=== PATIENT | male | born 1995 | race Caucasian/White ===

== ENCOUNTER 2022-01-30 18:05 | Inpatient (IN) | payer OTHER ==
[2022-01-30] MEDS ORDERED: NICOTINE 21MG/24HR PATCH TRANSDERM STA (22:15)
[2022-01-30] MEDS ORDERED: OLANZapine 10 MG VIAL IM STA (23:03)
[2022-01-30] MEDS ORDERED: LORazepam 1 MG TAB PO STA (23:27)
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
[2022-01-31] MEDS ORDERED: MAGNESIUM HYDROXIDE 2,400 MG/10 ML CUP PO PRN (01:42)
[2022-01-31] MEDS ORDERED: ACETAMINOPHEN TAB 325 MG TAB PO PRN (01:42)
[2022-01-31] MEDS ORDERED: MAG HYDROX/AL HYDROX/SIMETH 30 ML CUP PO PRN (01:42)
[2022-01-31] MEDS ORDERED: HALOPERIDOL LACTATE 5 MG/ML 1 ML VIAL IM PRN (01:42)
[2022-01-31] MEDS ORDERED: LORazepam 2 MG/ML INJ IM PRN (01:45)
[2022-01-31] MEDS: LORazepam 1 MG TAB PO PRN ×2 (03:06→21:55)
[2022-01-31] MEDS: NICOTINE 14MG/24HR PATCH TRANSDERM SCH (08:28)
[2022-01-31] MEDS ORDERED: PARoxetine 20 MG TAB PO SCH (09:00)
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
[2022-01-31] MEDS: DULoxetine HCL 30 MG CAPSULE.DR PO SCH (20:34)
[2022-01-31] MEDS: QUEtiapine 50 MG TAB PO SCH (20:34)
--- NOTE | 2022-01-31 22:05 | P.MDCNMH ---
History of Present Illness H&P Date: 01/31/22 Chief Complaint: medical eval 26 year old male with bipolar disorder patient petitioned by family for delusional behavior and making threats. he denies that. however, he has been going through hard time with his GF and lead to him feeling depressed. he denies any medical concerns , denies any fever, chills, cough, SOB, chest pain, abd pain , Nausea vomiting. he admits to smoking, marijuana and alcohol Review of Systems Pertinent positives as noted in HPI. All other systems were reviewed and are negative Past Medical History Past Medical History: Asthma History of Any Multi-Drug Resistant Organisms: None Reported Past Surgical History: Tonsillectomy Past Psychological History: ADD/ADHD, Anxiety, Depression Smoking Status: Current some day smoker, Vaper Past Alcohol Use History: Occasional Past Drug Use History: Marijuana - Past Family History family Family Medical History: No Reported History Medications and Allergies Home Medications Medication Instructions Recorded Confirmed Type Methylphenidate HCl 36 mg PO DAILY 01/30/22 01/31/22 History [Methylphenidate HCl ER] PARoxetine HCL [Paxil] 40 mg PO DAILY 01/30/22 01/31/22 History Allergies Allergy/AdvReac Type Severity Reaction Status Date / Time No Known Allergies Allergy Verified 01/31/22 01:45 Physical Exam Vitals: Vital Signs Temp Pulse Pulse Resp BP BP Pulse Ox 01/31/22 02:40 97.6 F 77 16 159/101 99 01/30/22 22:23 77 18 127/88 97 Intake and Output 01/31/22 01/31/22 01/31/22 06:59 14:59 22:59 Other: Weight 114.957 kg Constitutional: No acute distress, conversant, pleasant Eyes: Anicteric sclerae, moist conjunctiva, Pupils equal round reactive to light ENMT: NC/AT Oropharynx clear, no erythema, or exudates Neck: Supple, FROM, no masses, or JVD No carotid bruits No thyromegaly Lungs: Clear to auscultation Clear to percussion Normal respiratory effort, no accessory muscle use Cardiovascular: Heart regular in rate and rhythm, No murmurs, gallops, or rubs No peripheral edema Abdominal: Soft Nontender, no guarding, rebound or rigidity Abdomen moving with respiration Normoactive bowel sounds No hepatomegaly, No splenomegaly No palpable mass No abdominal wall hernia noted Skin: Normal temperature, tone, texture, turgor No induration No subcutaneous nodules No rash, lesions No ulcers Extremities: No digital cyanosis No clubbing Pedal pulses intact and symmetrical Radial pulses intact and symmetrical No calf tenderness Psychiatric: Alert and oriented to person, place and time Appropriate affect Neuro Muscles Strength 5/5 in all 4 extremities Sensation to light touch grossly present throughout Cranial nerves II-XII grossly intact No focal sensory deficits Lymphatics: no palpable cervical or supraclavicular , or inguinal lymph nodes Cranial Nerve Examination - Cranial Nerves Cranial Nerve II- Optic: Intact Cranial Nerve III- Oculomotor: Intact Cranial Nerve IV- Trochlear: Intact Cranial Nerve V- Trigeminal: Intact Cranial Nerve - Abducens: Intact Cranial Nerve VII- Facial: Intact Cranial Nerve VIII- Auditory: Intact Cranial Nerve IX- Glossopharyngeal: Intact Cranial Nerve X- Vagus: Intact Cranial Nerve XI- Accessory: Intact Cranial Nerve XII- Hypoglossal: Intact Assessment and Plan Assessment: depression , delusional ideation management per psych polysubstance abuse counseled to quit drug of abuse nicotine replacement therapy follow up labs Thank you for allowing us to participate in the care of this patient. We will follow peripherally. Do not hesitate to contact us with questions. Someone can be reached from the [facility] hospitalist group at all hours of the day at [phone].
--- NOTE | 2022-02-01 09:13 | P.PN ---
Progress Note - Text Progress Note Date: 02/01/22 Interval History: Patient was seen lying in his bed this morning and was directable and agreeable to speak with marketing writer in the office. Patient appeared to have an improvement in his affect today. He appeared to be less paranoid and less argumentative with marketing writer. He continues to be fairly guarded however about his home situation and when asked further about any states that "my grandparents are getting older and they're having their own problems" and then begin changing subject. He states that his mood is doing "better" and is denying any anxiety today. He states that he was able to sleep well last night with the medications and is not reporting any side effects today. He claims that his appetite is fair. At this time patient denies any suicidal or homical ideations, intent or plan. Patient denies any auditory, visual hallucinations. Patient denies any side effects from the medications and has been compliant with meds. Mental Status Exam: General Appearance: Patient appears to be tall, stated age is alert, less bizarre and paranoid today, improving. Patient appears to have improving hygiene and grooming. Behavior: Patient is seated without any agitated behavior. Vague, evasive at times. More cooperative today. Speech: Patient's speech is fluent and nonpressured. Mood/Affect: Patient reports their mood is improving mildly, affect is congruent and constricted. Suicidality/Homicidality: Patient denies having any homicidal ideation intent or plan. Denies any suicidal ideations intent or plan Perceptions: Patient denies any visual hallucinations and denies any auditory hallucinations Though content/process: vague and evasive. Not endorsing any specific delusi ons. Paranoia improving. Memory and concentration: AOX3, grossly intact for the purposes of this session Judgment and insight: Improving mildly IMPRESSIONS: Major depressive disorder, with psychotic features Cannabis use disorder Nicotine dependence Plan: -Patient continues to meet criteria for inpatient psychiatric admission for symptom stabilization and safety. Patient has not signed adult voluntary form and was placed in patient's chart. -Medications: Continue with Cymbalta 30 mg daily at bedtime for mood/anxiety, Seroquel 50 mg daily at bedtime for mood/psychosis. -When necessary Ativan and Haldol for agitation/aggression. -NRT - nicotine patch -SW on board for discharge planning. Encouraged the patient to participate in milieu. Currently awaiting deferral with sports attorney and court date. it appears that patient will likely sign deferral with his sports attorney, patient could likely be discharged shortly after that if he continues to improve
[2022-02-01] MEDS: NICOTINE 14MG/24HR PATCH TRANSDERM SCH (09:14)
[2022-02-01 10:59] LABS: Basophils % (A) 1 %; Eosinophils # (A) 0.1 k/uL (0-0.7); Eosinophils % (A) 1 %; HGB 16.1 gm/dL (13.0-17.5); Lymphocytes # (A) 1.6 k/uL (1.0-4.8); Lymphocytes % (A) 27 %; MCH 29.3 pg (25.0-35.0); MCHC 32.8 g/dL (31.0-37.0); MCV 89.2 fL (80.0-100.0); Mean Platelet Volume 7.7; Monocytes # (A) 0.3 k/uL (0-1.0); Monocytes % (A) 5 %; Neutrophils # (A) 3.8 k/uL (1.3-7.7); Neutrophils % (A) 65 %; Platelet Count 262 k/uL (150-450); RDW 13.3 % (11.5-15.5); WBC 5.9 k/uL (3.8-10.6)
[2022-02-01 11:22] LABS: ALT 29 U/L (4-49); AST 27 U/L (17-59); African American GFR (CKD) >90 (>60 ml/min/1.73 sqM); Albumin 4.7 g/dL (3.5-5.0); Alkaline Phosphatase 81 U/L (38-126); Anion Gap 6 mmol/L; Blood Urea Nitrogen 14 mg/dL (9-20); Calcium 9.6 mg/dL (8.4-10.2); Carbon Dioxide 31 mmol/L (22-30); Chloride 105 mmol/L (98-107); Glucose 85 mg/dL (74-99); Non-African American GFR(CKD) >90 (>60 ml/min/1.73 sqM); Potassium 4.8 mmol/L (3.5-5.1); Sodium 142 mmol/L (137-145); Total Bilirubin 0.7 mg/dL (0.2-1.3); Total Protein 7.2 g/dL (6.3-8.2)
[2022-02-01] MEDS: QUEtiapine 50 MG TAB PO SCH (20:30)
[2022-02-01] MEDS: DULoxetine HCL 30 MG CAPSULE.DR PO SCH (20:30)
[2022-02-01] MEDS: NICOTINE GUM (POLACRILEX) 2 MG GUM BUCCAL PRN (20:31)
[2022-02-01] MEDS: LORazepam 1 MG TAB PO PRN (21:01)
[2022-02-01] MEDS: haloperidoL 5 MG TAB PO PRN (21:01)
[2022-02-02] MEDS: NICOTINE 14MG/24HR PATCH TRANSDERM SCH (08:47)
[2022-02-02] MEDS: LORazepam 1 MG TAB PO PRN ×2 (08:48→14:54)
[2022-02-02] MEDS: haloperidoL 5 MG TAB PO PRN ×2 (08:48→14:54)
--- NOTE | 2022-02-02 15:03 | P.PN ---
Progress Note - Text Progress Note Date: 02/02/22 Clinical Problems: Major depressive disorder with psychotic features, rule out bipolar disorder most recent episode depressed with psychotic features, rule out schizoaffective disorder, rule out schizophreniform disorder cannabis use disorder, history of ADHD, tobacco use disorder Interim history: I reviewed the medical record, interviewed the patient and discussed the treatment and treatment plan with the treatment team. He was admitted to the psychiatric unit involuntarily with a history of agitation, irritability, aggressiveness and paranoia. He minimizes the circumstances that led to this hospitalization and denied that he had threatened his mother. He attributes the hospitalization to a series of misunderstandings between him and his family. He was vague about the circumstances but alluded to his issues regarding money and inheritance. He denied that he was homeless or that he was sleeping in a truck. He became acutely distressed yesterday last night threatening to "bust down the door." He received 5 mg of Haldol and 1 mg Ativan by mouth. He is not attending therapeutic groups. He slept 6 hours last night. Mental status exam: He presented as a tall casually groomed, young male who was pleasant on approach. He made eye contact and appeared to attend to interview. He had no distinguishing features or prominent physical abnormalities. He had a blunted facial expression. He showed no ability of psychomotor activity. His speech was spontaneous with normal rate and volume. His affect was guarded, suspicious and anxious. He denied suicidal ideation and wishes. He denied homicidal ideation. Denied feeling hopeless, helpless or worthless. He ruminated over the circumstances that led to this hospitalization and expressed vague paranoid ideation. His thinking was concrete. Associations were coherent and logical. He denied hallucinations and did not appear to be responding to internal stimuli. Assessment: We are waiting the deferral hearing. He continues have periods of increased paranoia and agitation Plan: Attend inpatient treatment. Safety precautions. Continue Cymbalta 30 mg daily. Increase Seroquel 200 mg at bedtime and titrated according to clinical response and tolerance. Habitrol and/or Nicorette gum for smoking cessation. Encourage participation in therapeutic groups and activities. Evaluate clinical status response to treatment daily basis.
[2022-02-02] MEDS: DULoxetine HCL 30 MG CAPSULE.DR PO SCH (20:48)
[2022-02-02] MEDS: NICOTINE GUM (POLACRILEX) 2 MG GUM BUCCAL PRN (20:49)
[2022-02-02] MEDS ORDERED: QUEtiapine 100 MG TAB PO SCH (21:00)
[2022-02-03] MEDS: NICOTINE 14MG/24HR PATCH TRANSDERM SCH (08:18)
--- NOTE | 2022-02-03 13:27 | P.PN ---
Progress Note - Text Progress Note Date: 02/03/22 Clinical Problems: Major depressive disorder with psychotic features, rule out bipolar disorder most recent episode depressed with psychotic features, rule out schizoaffective disorder, rule out schizophreniform disorder cannabis use disorder, history of ADHD, tobacco use disorder Interim history: I reviewed the medical record, interviewed the patient and discussed the treatment and treatment plan with the treatment team. He was angry, irritable and minimally cooperative. He complained about the continued hospitalization and demanded to be discharged. He has no insight or understanding as to the reason for this hospitalization. He met with his court appointed litigation attorney and deferred the probate hearing today. He received 1 mg of Ativan 5 mg of Haldol yesterday afternoon for agitation acute psychosis. I reviewed the letter written by his mother about his behavior. The letter de scribes \ marked change in his functioning with paranoia and paranoid and grandiose delusional beliefs. She slept 7 hours last night. He is not attending therapeutic groups and activities. He spends his time alone seldom interacting with staff or peers. He often appears to be internally preoccupied. Mental status exam: He presented as a tall casually groomed male who was minimally cooperative. He was angry and irritable. He had slight psychomotor slowing. His speech was not spontaneous and had decreased rate and rhythm. His affect was dysphoric, angry and short. He denied suicidal ideation and homicidal ideation. He did not express feelings of hopelessness, helplessness and worthlessness. He ruminated about this hospitalization and the misunderstanding that led to this hospitalization. He is paranoid but did not express clear paranoid ideation or delusional beliefs. His thinking was concrete but his associations were coherent, logical goal-directed. He denied hallucinations but at times appears to be responding to internal stimuli. Assessment: He has been compliant with medications but remains isolative, aloof, irritable and paranoid. I suspect that he has a major mental illness and a psychotic spectrum. Plan: Continue inpatient treatment. Safety precautions. Increase Seroquel to 200 mg at bedtime and titrated according to clinical response and tolerance. Continue current dose of duloxetine. Haldol and/or Ativan for agitation, anxiety or acute psychosis. Continue discussion of need for continued mental health treatment including psychotropic medications. Encourage participation in therapeutic groups and activities. Evaluate clinical status response to treatment daily basis.
[2022-02-03] MEDS: NICOTINE GUM (POLACRILEX) 2 MG GUM BUCCAL PRN ×2 (13:42→20:49)
[2022-02-03] MEDS: LORazepam 1 MG TAB PO PRN ×2 (13:42→20:06)
[2022-02-03] MEDS: DULoxetine HCL 30 MG CAPSULE.DR PO SCH (20:06)
[2022-02-03] MEDS: QUEtiapine 100 MG TAB PO SCH (20:07)
[2022-02-03] MEDS: haloperidoL 5 MG TAB PO PRN (20:08)
[2022-02-04] MEDS: NICOTINE 14MG/24HR PATCH TRANSDERM SCH (08:39)
[2022-02-04] MEDS: LORazepam 1 MG TAB PO PRN ×2 (10:17→16:35)
[2022-02-04] MEDS: haloperidoL 5 MG TAB PO PRN ×2 (14:04→15:37)
[2022-02-04] MEDS: NICOTINE GUM (POLACRILEX) 2 MG GUM BUCCAL PRN ×3 (14:16→19:18)
--- NOTE | 2022-02-04 14:35 | P.PN ---
Progress Note - Text Progress Note Date: 02/04/22 Clinical Problems: Major depressive disorder with psychotic features, rule out bipolar disorder most recent episode depressed with psychotic features, rule out schizoaffective disorder, rule out schizophreniform disorder cannabis use disorder, history of ADHD, tobacco use disorder Interim history: I reviewed the medical record and interviewed the patient. He described improvement in his mood decreases anxiety and irritability. He denied side effects to the increased dose dose of Seroquel. However, he was reluctant to increase the Seroquel further. He was more receptive to remaining in the hospital and has begun to attend therapeutic activities. He is less isolative. He denied side effects to current dose of Cymbalta or Seroquel. Mental status exam: He presented as a tall casually groomed young male who was pleasant on approach. He made eye contact and attended to the interview. He had a blunted but bright facial expression. He had no abnormality of psychomotor activity. Her speech was spontaneous with normal rate, volume and rhythm. His affect was stable and appropriate. He was not irritable or angry or overly anxious. He denied suicidal ideation or wishes. He denied feeling hopeless, helpless and worthless. He did not express ideas reference, paranoid ideation or delusions. His thinking was abstract and associations were coherent, logical and goal directed. He denied hallucinations did not appear to responding to internal stimuli. Assessment: Patient continues to meet the criteria for inpatient psychiatric admission for symptom stabilization and safety Plan: Continue inpatient treatment. Safety precautions. Continue current med ications. Plan to discharge noted and 02/06/2022. Encourage participation in therapeutic groups and activities. Evaluate clinical status and response to treatment daily basis.
[2022-02-04] MEDS: QUEtiapine 100 MG TAB PO SCH (20:23)
[2022-02-04] MEDS: DULoxetine HCL 30 MG CAPSULE.DR PO SCH (20:23)
[2022-02-05 07:00] VITALS: RESP 16; TEMP 97.7
[2022-02-05] MEDS: LORazepam 1 MG TAB PO PRN ×3 (07:19→19:09)
[2022-02-05] MEDS: NICOTINE 14MG/24HR PATCH TRANSDERM SCH (08:03)
[2022-02-05] MEDS: haloperidoL 5 MG TAB PO PRN ×2 (09:49→16:08)
--- NOTE | 2022-02-05 13:03 | P.PN ---
Progress Note - Text Progress Note Date: 02/05/22 Clinical Problems: Major depressive disorder with psychotic features, rule out bipolar disorder most recent episode depressed with psychotic features, rule out schizoaffective disorder, rule out schizophreniform disorder cannabis use disorder, history of ADHD, tobacco use disorder Interim history: I reviewed the medical record and interviewed the patient. He approached me several times this morning with various requests. He brought a Bible into the room and asked me to read brief scripture. Reading the scripture appeared to have a special meaning for him but when I inquired about his interpretation his response appeared reasonable. Later in the morning he asked if other patients thought that he was employed in the hospital. He described an incident where another patient approached him and inquired about discharge. He appeared anxious and distressed. He appeared to interpret this encounter as the other patient thought that he was an employee in the hospital. The level of anxiety decrease with assurance. Mental status exam: He presented as a tall casually groomed young male who was pleasant on approach. He made eye contact and attended to the interview. He had a blunted but bright facial expression. He had no abnormality of psychomotor activity. Her speech was spontaneous with decreased rate, volume and rhythm. His affect was stable and appropriate. He was not irritable or angry or overly anxious. He denied suicidal ideation or wishes. He denied feeling hopeless, helpless and worthless. He expressed ideas of reference and appeared paranoid. His thinking was abstract and associations were coherent, logical and goal directed. He denied hallucinations did not appear to responding to internal stimuli. Assessment: I suspect that his presentation her she related to a psychotic spectrum disorder who has a mood disorder. Plan: Continue inpatient treatment. Safety precautions. Increase Seroquel to 300 mg at bedtime. Continue Cymbalta 30 mg at bedtime. Plan to discharge noted and 02/06/2022. Encourage participation in therapeutic groups and activities. Evaluate clinical status and response to treatment daily basis.
[2022-02-05] MEDS: NICOTINE GUM (POLACRILEX) 2 MG GUM BUCCAL PRN (14:49)
[2022-02-05] MEDS: DULoxetine HCL 30 MG CAPSULE.DR PO SCH (19:09)
[2022-02-05] MEDS ORDERED: QUEtiapine 100 MG TAB PO SCH (21:00)
[2022-02-06 07:00] VITALS: BP 128/82; PULSE 107
[2022-02-06] MEDS: haloperidoL 5 MG TAB PO PRN (08:22)
[2022-02-06] MEDS: NICOTINE 14MG/24HR PATCH TRANSDERM SCH (08:22)
[2022-02-06] MEDS: LORazepam 1 MG TAB PO PRN (09:46)
[2022-02-06] MEDS: NICOTINE GUM (POLACRILEX) 2 MG GUM BUCCAL PRN (10:20)
--- NOTE | 2022-02-06 12:48 | P.DS ---
Providers Date of admission: 01/31/22 01:33 Attending physician: Keaton Abraham MD Consults: 01/31/22 01:42 Consult Physician Routine Consulting Provider: [facility] Physician Consult Reason/Comments: History and physical Do you want consulting provider notified?: Already Contacted Primary care physician: Patrice Han MD - Discharge Diagnosis(es) (1) Major depressive disorder with psychotic features Status: Acute (2) Cannabis use disorder, mild, abuse Status: Acute (3) ADHD, adult residual type Status: Acute (4) Tobacco use Status: Acute Hospital Course: HISTORY: He is a 26-year-old single male under an involuntary status. His grandparents called the police because he is making threatening statements them. His mother completed the petition and stated that he is hallucinating, delusional sleepiness trial. He also made threats to kill her. He has a purported history of ADHD and had been treated with a combination of Paxil or Adderall as an outpatient. He was admitted to his work at age 14 for unspecified reasons. He was not engaged with mental health treatment prior to admission. HOSPITAL COURSE: We completed the second clinical certificate and [place] at the Petition to probate Court. We provided a comprehensive biopsychosocial assessment. The dynamics ax consultant cone classifier tender completed initial physical exam and medical history and did not diagnoses of major medical illness. He met with the court equal opportunity representative and deferred the involuntary hearing. His initial presentation was characterized by evasiveness and marked paranoia. Although he has a history of apparent auditory hallucinations and did not appear to be responding to internal stimuli during this hospitalization. We treated her symptoms with combination of Cymbalta and Seroquel. His symptoms improved as a titrated dose of Seroquel to 300 mg at bedtime. He was religiously preoccupied throughout the hospitalization and occasionally expressed ideas of reference. Although we gave a discharge diagnoses of a depressive disorder but suspect that he may in the prodromal stage of a major psychotic disorder. He seldom participated in therapeutic groups and activities. He posed no management problem and had no episodes of behavioral dyscontrol. MENTAL STATUS ON DISCHARGE: At the time of discharge she presented as a tall casually groomed male who was pleasant on approach. He made eye contact and attended to the interview. He had no distinguishing features or prominent physical abnormalities he had a blunted facial expression. He is alert and oriented to person, place and time. He had slight psychomotor retardation but no abnormal involuntary movements. Her speech was spontaneous with decreased rhythm and volume. His affect was guarded but not paranoid. He denied suicidal ideation and wishes. He denied homicidal ideation. He denied feeling hopeless, helpless or worthless. He did not express clear paranoid ideation, magical ideation or delusions. His thinking was concrete but his associations were coherent, logical and goal directed. DISPOSITION: He plans to live in his truck after discharge. He would not give consent for the social work specialist to speak with family. Consent honest to speak with his girlfriend who lives out of state. His appointment with [facility] on 02/10/2022. Discharge medications are listed below. Patient Condition at Discharge: Stable Plan - Discharge Summary New Discharge Prescriptions: New DULoxetine HCL [Cymbalta] 30 mg PO HS #30 cap Nicotine 14Mg/24Hr Patch [Habitrol] 1 patch TRANSDERM DAILY #28 patch QUEtiapine FUMARATE [SEROquel] 300 mg PO HS #30 tab Discontinued PARoxetine HCL [Paxil] 40 mg PO DAILY Methylphenidate HCl [Methylphenidate HCl ER] 36 mg PO DAILY Discharge Medication List DULoxetine HCL [Cymbalta] 30 mg PO HS #30 cap 02/06/22 [Rx] Nicotine 14Mg/24Hr Patch [Habitrol] 1 patch TRANSDERM DAILY #28 patch 02/06/22 [Rx] QUEtiapine FUMARATE [SEROquel] 300 mg PO HS #30 tab 02/06/22 [Rx] Follow up Appointment(s)/Referral(s): [facility] [Outside] - 02/10/22 9:00 am (02/10 at 9 w/Adrienne) Patrice Han MD [Primary Care Provider] - 1-2 days Patient Instructions/Handouts: How to Stop Smoking (DC), Depression (DC) Activity/Diet/Wound Care/Special Instructions: Activity and diet as tolerated. Avoid the use of street drugs and alcohol. Take all medications as prescribed. When you are in need of refills on your medications please contact your medical provider and/or outpatient psychiatrist to have this done. Please go to scheduled outpatient appointment for aftercare treatment. If symptoms return or become worse, call the crisis line at and/or go to the nearest emergency room for evaluation Discharge Disposition: HOME SELF-CARE
== END 2022-02-06 11:42 | disposition home or self-care (01) | DRG 885 ==
LOC: EC 18:05 → 3MHU 01-31 01:33
PROVIDERS: ADMIT Psychiatry & Neurology Psychiatry; ATTEND Psychiatry & Neurology Psychiatry
DX: F32.3 Major depressive disorder, single episode, severe with psychotic features (principal); F23 Brief psychotic disorder; F12.90 Cannabis use, unspecified, uncomplicated; F17.210 Nicotine dependence, cigarettes, uncomplicated; F31.9 Bipolar disorder, unspecified; F41.9 Anxiety disorder, unspecified; F90.9 Attention-deficit hyperactivity disorder, unspecified type; J45.909 Unspecified asthma, uncomplicated; Z56.0 Unemployment, unspecified; Z20.822 Contact with and (suspected) exposure to COVID-19
CPT/HCPCS: 80053; 82075; 83036; 84443; 85025; 87635; 93005; 99285

== ENCOUNTER 2022-02-10 17:24 | Inpatient (IN) | payer OTHER ==
[2022-02-10] MEDS ORDERED: NICOTINE 14MG/24HR PATCH TRANSDERM STA (19:01)
[2022-02-10] MEDS ORDERED: haloperidoL 5 MG TAB PO STA ×3 (19:02→21:58)
[2022-02-10] MEDS: DULoxetine HCL 30 MG CAPSULE.DR PO SCH (20:50)
[2022-02-10] MEDS: QUEtiapine 100 MG TAB PO SCH (20:50)
[2022-02-10 20:55] LABS: Amphetamine Screen,Urine Not Detected (NotDetected); Barbiturate Screen,Urine Not Detected (NotDetected); Benzodiazepines Screen,Urine Not Detected (NotDetected); Cocaine Screen,Urine Not Detected (NotDetected); Methadone Screen, Urine Not Detected (NotDetected); Opiate Screen,Urine Not Detected (NotDetected); Oxycodone Screen, Urine Not Detected (NotDetected); Phencyclidine Screen,Urine Not Detected (NotDetected); Tricyclic Antidepressant,Urine Detected (NotDetected); Urn Cannabinoid Scrn Detected (NotDetected)
--- NOTE | 2022-02-10 20:57 | ED ---
General Adult HPI - General Chief complaint: Psychiatric Symptoms Stated complaint: Mental Health Time Seen by Provider: 02/10/22 19:01 Source: patient, police, RN notes reviewed, old records reviewed Mode of arrival: EMS Limitations: no limitations - History of Present Illness Initial comments: Patient is a 26-year-old male who presents emergency department for psychiatric evaluation. At a pickup order in place. Petition was provided by his mother. He states "said he would kill mom. He is hallucinating. Delusional. Started sleeping in car. Told grandmarion he caused traffic jam. "If you touch them I will kill you."" Currently patient denies any acute complaints. Denies suicidal ideations, homicidal ideations, visual or auditory hallucinations. Denies any chest pain, shortness breath, headache. Is requesting nicotine patch will will be provided. Also be given oral Haldol for anxiety. No other acute complaints at this time. - Related Data Home Medications Medication Instructions Recorded Confirmed Nicotine 14Mg/24Hr Patch [Habitrol] 1 patch TRANSDERM DAILY PRN 02/10/22 02/10/22 Previous Rx's Medication Instructions Recorded DULoxetine HCL [Cymbalta] 30 mg PO HS #30 cap 02/06/22 QUEtiapine FUMARATE [SEROquel] 300 mg PO HS #30 tab 02/06/22 Allergies Allergy/AdvReac Type Severity Reaction Status Date / Time No Known Allergies Allergy Verified 02/10/22 19:09 Review of Systems ROS Statement: Those systems with pertinent positive or pertinent negative responses have been documented in the HPI. Review of Systems: CONST: Denies fever EYES: Denies blurry vision ENT: Denies nasal congestion C/V: Denies Chest pain RESP: Denies shortness of breath GI: Denies abdominal pain : Denies dysuria SKIN: Denies rash. MSK: Denies joint pain. NEURO: Denies headache PSYCH: Denies suicidal and homicidal ideations/plans/attempts. Denies visual or auditory hallucinations. ROS Other: All systems not noted in ROS Statement are negative. Past Medical History Past Medical History: Asthma History of Any Multi-Drug Resistant Organisms: None Reported Past Surgical History: Tonsillectomy Past Psychological History: ADD/ADHD, Anxiety, Depression Smoking Status: Current some day smoker, Vaper Past Alcohol Use History: Occasional Past Drug Use History: Marijuana - Past Family History family Family Medical History: No Reported History General Exam - General Exam Comments Initial Comments: General: Appears in no acute distress. HEAD: Normal with no signs of head trauma. EYES: EOMI ENT: Hearing grossly intact, normal oropharynx. RESPIRATORY: Clear breath sounds bilaterally. No wheezes, rales, or rhonchi. C/V: Regular rate and rhythm. S1 and S2 auscultated, no edema, peripheral pulses 2+ and intact throughout ABD: Abd is soft, nontender, nondistended EXT: Normal range of motion, no obvious deformity SKIN: No rashes or lesions observed on exposed skin. NEURO: Alert and oriented 4. No focal deficits. Limitations: no limitations Course Vital Signs 02/10/22 18:58 Temperature 99.1 F Pulse Rate 91 Respiratory 16 Rate Blood Pressure 150/94 O2 Sat by Pulse 96 Oximetry Medical Decision Making - Medical Decision Making Based on the patient's presentation and physical exam, do believe that he requires psychiatric evaluation. Patient was placed in agreement scrubs. Sitter order was placed. BAT was 0. UDS was ordered. Haldol as well as nicotine patch were ordered for the patient as well as his nighttime meds. I talked with EPS we'll evaluate the patient. He is medically cleared for psychiatric evaluation at this time. Disposition is pending psychiatric evaluation. Covid swab was ordered. Psychiatry evaluated the patient and the patient does meet inpatient criteria. Patient was admitted to inpatient psychiatry in stable condition. - Lab Data Lab Results 02/10/22 02/10/22 02/10/22 Range/Units 19:01 20:35 22:21 Urine Color Yellow Urine Appearance Clear (Clear) Urine pH 6.0 (5.0-8.0) Ur Specific [place] 1.015 (1.001-1.035) Urine Protein Negative (Negative) Urine Glucose (UA) Negative (Negative) Urine Ketones Negative (Negative) Urine Blood Negative (Negative) Urine Nitrite Negative (Negative) Urine Bilirubin Negative (Negative) Urine Urobilinogen <2.0 (<2.0) mg/dL Ur Leukocyte Esterase Small H (Negative) Urine RBC <1 (0-5) /hpf Urine WBC 9 H (0-5) /hpf Urine Mucus Rare H (None) /hpf Urine Opiates Screen Not Detected (NotDetected) Ur Oxycodone Screen Not Detected (NotDetected) Urine Methadone Screen Not Detected (NotDetected) Ur Propoxyphene Screen Not Detected (NotDetected) Ur Barbiturates Screen Not Detected (NotDetected) U Tricyclic Antidepress Detected H (NotDetected) Ur Phencyclidine Scrn Not Detected (NotDetected) Ur Amphetamines Screen Not Detected (NotDetected) U Methamphetamines Scrn Not Detected (NotDetected) U Benzodiazepines Scrn Not Detected (NotDetected) Urine Cocaine Screen Not Detected (NotDetected) U Marijuana (THC) Screen Detected H (NotDetected) Coronavirus (PCR) Not Detected (Not Detectd) Disposition Clinical Impression: Acute psychosis, Encounter for psychiatric assessment Disposition: TRANSFER TO PSYCH HOSP/UNIT Condition: Stable
[2022-02-11] MEDS ORDERED: HALOPERIDOL LACTATE 5 MG/ML 1 ML VIAL IM PRN (00:20)
[2022-02-11] MEDS ORDERED: MAG HYDROX/AL HYDROX/SIMETH 30 ML CUP PO PRN (00:20)
[2022-02-11] MEDS ORDERED: MAGNESIUM HYDROXIDE 2,400 MG/10 ML CUP PO PRN (00:20)
[2022-02-11] MEDS ORDERED: LORazepam 2 MG/ML INJ IM PRN (00:32)
[2022-02-11] MEDS: LORazepam 1 MG TAB PO PRN (01:43)
[2022-02-11 01:44] LABS: Appearance,Urine Clear (Clear); Bilirubin,Urine Negative (Negative); Blood,Urine Negative (Negative); Color,Urine Yellow; Glucose,Urine (UA) Negative (Negative); Ketones,Urine Negative (Negative); Leukocyte Esterase,Urine Small (Negative); Mucus,Urine Rare /hpf; Nitrite,Urine Negative (Negative); Protein,Urine Negative (Negative); RBC,Urine <1 /hpf (0-5); Specific Gravity,Urine 1.015 (1.001-1.035); Urobilinogen,Urine <2.0 mg/dL (<2.0); WBC,Urine 9 /hpf (0-5)
[2022-02-11] MEDS: NICOTINE 14MG/24HR PATCH TRANSDERM SCH (11:46)
[2022-02-11] MEDS: haloperidoL 5 MG TAB PO PRN ×2 (11:49→20:42)
--- NOTE | 2022-02-11 17:23 | P.HP ---
Psychiatric H&P - . H&P Date: 02/11/22 History & Physical: IDENTIFYING DATA: Patient is a 26-year-old male who is currently living out of his truck, is currently unemployed, has no kids and is unmarried. HPI: Patient presented to the hospital for the second time this month, is on a deferral and has demand for hearing. He reports he is here because his mother was "uncomfortable" with not knowing what is going on with him and so she called police. He reports she threw a temper tantrum and ruins his life. He reports he was talking to his social service manager about continuing his treatment in [place] and his Mom became upset and "crazy" and she called the parachute taper. He missed his appointment with [facility] scheduled for 02/10/22 (yesterday) and states he could not use his vehicle. He reports his grandfather took his truck flores and hid it. On asking him the details stated in his ER assessment, he states he told him mother if she touches his grandparents, he will kill her. Patient denies any suicidal or homicidal ideations intent or plan. At this time patient denies any auditory or visual hallucinations. Patient denies any flight of ideas, racing thoughts, and increased in goal directed behavior. He reports sleeping a couple hours per night because he reports having insomnia since he was a kid as well as chronic back pain. Patient admits to daily marijuana use. He denies alcohol use. PAST PSYCHIATRIC HISTORY: Patient reports he is diagnosed with Bipolar Disorder, Schizophrenia, Psychosis. Patient reports being compliant with medications after his last discharge from [facility] this month. Patient reports 4 prior psychiatric hospitalizations. Patient missed his [facility] follow-up appointment on February 10, 2022. Patient denies any history of suicide attempts in the past. PMH: Asthma ALLERGIES: as per EMR CHEMICAL DEPENDENCY HISTORY: Patient admits to daily marijuana use. He denies alcohol use. He smokes 0.5-1 ppd. FAMILY PSYCHIATRIC/SUBSTANCE USE HISTORY: Maternal grandmother with dementia. Mother "needs a therapist" SOCIAL HISTORY: Patient was born and raised in [place]. He states that he completed high school. He claims that he has no legal history. He states that he used to work for a [employer] company however has been unemployed for quite some time now. He is denying any kids and is unmarried. He is currently living out of his truck. Father when he was 14 years old from pancreatic cancer. He reports he was close with his father. Mother remarried stepfather when he was 15 years old. He is not close with his stepfather. He is no longer close with his mother. His ex-girlfriend miscarried his child. He is now with a different girlfriend. MENTAL STATUS EXAM: General Appearance: Patient appears to be his stated age. He is alert, directable, and attempts to cooperate. Patient appears to have fair hygiene and grooming. Behavior: Patient is seated without any agitated behavior. Speech: Patient's speech is fluent and non-pressured. Mood/Affect: Patient reports their mood is "calm", affect is incongruent, irritable and constricted. Suicidality/Homicidality: Patient denies having any homicidal ideation intent or plan, and denies any suicidal ideations intent or plan. Perceptions: Patient denies any visual hallucinations and denies any auditory hallucinations. Though content/process: There is no evidence of any delusional thought content and thought process is linear and goal-directed. Memory and concentration: AOX3, grossly intact for the purposes of this session. Can spell "WORLD" backwards. Judgment and insight: Fair insight, poor judgment STRENGTHS/WEAKNESSES: Strength is that patient is that "things do not bother me the way they bother other people." Weakness is that patient is easily annoyed by his mother. INTELLECT: Average IMPRESSIONS: Major depressive disorder, recurrent severe, without psychotic features Cannabis use disorder Tobacco use disorder PLAN: -Patient is admitted under a court deferral status to [facility] for stabilization of psychiatric symptoms and safety, and a demand for hearing has been submitted. -Medications: Will continue Seroquel 300 mg QHS for psychosis and mood. Increase Cymbalta to 60 mg QHS for depressed mood. Ativan and Haldol PRN for agitation/aggression -Patient was counselled on substance abuse and desired to cut back on use -Patient was informed of the risks, benefits and side effects of the medication and patient verbally consented to taking the medications. -Internal Medicine consult to perform medical evaluation and physical. -NRT - nicotine patch -SW on board for discharge planning. Encourage patient to participate in groups to work on coping skills. Will await deferral and court date. Allergies Allergy/AdvReac Type Severity Reaction Status Date / Time No Known Allergies Allergy Verified 02/10/22 19:09 Vital Signs Temp 97.9 F 02/11/22 11:49 Pulse 92 02/11/22 11:49 Resp 16 02/11/22 11:49 BP 146/83 02/11/22 11:49 Pulse Ox 96 02/11/22 11:49 FiO2 Intake & Output 02/10/22 02/11/22 02/11/22 18:59 06:59 18:59 Weight 108.862 kg Laboratory Last Values Urine Color Yellow 02/10/22 20:35 Urine Appearance Clear (Clear) 02/10/22 20:35 Urine pH 6.0 (5.0-8.0) 02/10/22 20:35 Ur Specific [place] 1.015 (1.001-1.035) 02/10/22 20:35 Urine Protein Negative (Negative) 02/10/22 20:35 Urine Glucose (UA) Negative (Negative) 02/10/22 20:35 Urine Ketones Negative (Negative) 02/10/22 20:35 Urine Blood Negative (Negative) 02/10/22 20:35 Urine Nitrite Negative (Negative) 02/10/22 20:35 Urine Bilirubin Negative (Negative) 02/10/22 20:35 Urine Urobilinogen <2.0 mg/dL (<2.0) 02/10/22 20:35 Ur Leukocyte Esterase Small (Negative) H 02/10/22 20:35 Urine RBC <1 /hpf (0-5) 02/10/22 20:35 Urine WBC 9 /hpf (0-5) H 02/10/22 20:35 Urine Mucus Rare /hpf (None) H 02/10/22 20:35 Urine Opiates Screen Not Detected (NotDetected) 02/10/22 19:01 Ur Oxycodone Screen Not Detected (NotDetected) 02/10/22 19:01 Urine Methadone Screen Not Detected (NotDetected) 02/10/22 19:01 Ur Propoxyphene Screen Not Detected (NotDetected) 02/10/22 19:01 Ur Barbiturates Screen Not Detected (NotDetected) 02/10/22 19:01 U Tricyclic Antidepress Detected (NotDetected) H 02/10/22 19:01 Ur Phencyclidine Scrn Not Detected (NotDetected) 02/10/22 19:01 Ur Amphetamines Screen Not Detected (NotDetected) 02/10/22 19:01 U Methamphetamines Scrn Not Detected (NotDetected) 02/10/22 19:01 U Benzodiazepines Scrn Not Detected (NotDetected) 02/10/22 19:01 Urine Cocaine Screen Not Detected (NotDetected) 02/10/22 19:01 U Marijuana (THC) Screen Detected (NotDetected) H 02/10/22 19:01 Coronavirus (PCR) Not Detected (Not Detectd) 02/10/22 22:21 02/11/22 16:52
[2022-02-11] MEDS: DULoxetine HCL 30 MG CAPSULE.DR PO SCH (20:40)
[2022-02-11] MEDS: QUEtiapine 100 MG TAB PO SCH (20:40)
[2022-02-12] MEDS: haloperidoL 5 MG TAB PO PRN ×3 (04:33→19:12)
[2022-02-12] MEDS: NICOTINE 14MG/24HR PATCH TRANSDERM SCH ×3 (08:34→17:40)
[2022-02-12] MEDS: LORazepam 1 MG TAB PO PRN ×2 (08:57→15:58)
--- NOTE | 2022-02-12 17:08 | P.PN ---
Progress Note - Text Progress Note Date: 02/12/22 Interval history: Patient was directable and agreeable to speak with underwriter. At this time patient denies any suicidal or homicidal ideations intent or plan. He denies any auditory or visual hallucinations. He is frustrated with this admission and states he is not mentally ill and does not need to be here. He requests to leave AMA and it was discussed with him that he is on a deferral, and leaving is not possible today, he will have to wait for a court hearing. We discussed his medications in detail. He is compliant with his medications. He reports feeling oversedated in the morning and feels he needs additional medications during the daytime so we will adjust his Seroquel 300 mg QHS to 100 mg QAM and 200 mg QHS. Mental status exam: General Appearance: Patient appears to be stated age. Behavior: No agitated behavior. Patient is calm and directable. Speech: Patient's speech is fluent and nonpressured. Mood/Affect: Mood is improving mildly, affect is congruent and constricted. Suicidality/Homicidality: Patient denies having any suicidal or homicidal ideation intent or plan. Perceptions: Patient denies any auditory or visual hallucinations. Though content/process: There is no evidence of any delusional thought content and thought process is linear and goal-directed. Memory and concentration: AOX3, grossly intact for the purposes of this session Judgment and insight: improving mildly Assessment/Plan: Continue with current diagnosis. Patient continues to meet criteria for inpatient psychiatric admission for symptom stabilization and safety. Medications: Adjust Seroquel 300 mg QHS to 100 mg QAM and 200 mg QHS to minimize morning oversedation. Increase Cymbalta to 30 mg BID for depression/anxiety. Monitor for medication compliance and for any psychotropic medication side effects. Will continue to monitor ongoing response to treatment. Encouraged participation in milieu.
[2022-02-12] MEDS: DULoxetine HCL 30 MG CAPSULE.DR PO SCH ×2 (17:17→19:13)
--- NOTE | 2022-02-12 18:25 | P.HPMEDMHU ---
<Patrick Olivo - Last Filed: 02/12/22 18:17> History of Present Illness H&P Date: 02/12/22 History of Presenting Illness: Patient is a 26-year-old male with a past medical history of ADHD, daily cannabis use, and nicotine dependence. He is currently admitted to the inpatient psychiatric unit for evaluation and for major depressive disorder. We have been consulted for medical management throughout patient's hospitalization. patient seen and fully evaluated on mental health unit. Patient ambulatory with a steady gait. He was calm and cooperative. Patient reports that he is currently admitted to the mental health unit because his mom petitioned him because she is crazy because he will not tell her about his personal life and that she blew a conversation that he had with his grandparents out of proportions. Patient reports to smoking half a pack to a pack of cigarettes daily along with daily marijuana use. Patient denies drinking alcohol or having any other nonprescription drug use. He denies having any headache, lightheadedness, dizziness, chest pain, palpitations, or shortness of breath. Patient denies history of intentional self-harm or suicidal attempts. Patient denies having any suicidal or homicidal ideationsand denies having any visual, tactile, or auditory hallucinations. Review of systems: Pertinent positives and negatives as discussed in HPI, a complete review of systems was performed and all other systems are negative. Physical exam: Vital signs reviewed and stable. General: Nontoxic, no distress and appears stated age. Derm: Skin warm and dry, normal coloration for ethnicity. Head: Atraumatic, normocephalic and symmetric. Eyes: EOMs intact, no lid lag, and anicteric sclera Mouth: no lip lesions, mucus membranes moist Cardiovascular: regular rate and rhythm with normal S1S2, no murmur, positive posterior tibial pulses bilaterally, and cap refill < 2 seconds. Lungs: Respirations even, regular, and unlabored on room air. Lungs CTA bilaterally, no rhonchi, no rales, no wheezing, and no accessory muscle usage. Abdominal: soft, nontender to palpation, no guarding, no appreciable organomegaly Ext: ROM intact. No gross muscle atrophy, no edema, no contractures Neuro: Speech clear, face symmetrical and CN II-XII grossly intact with no noted focal neuro deficits Psych: Alert and oriented to person, place, time, and situation. Appropriate and pleasant affect. Assessment and Plan of Care: Daily cannabis use Nicotine dependence ADHD Major depressive disorder -Recommend cessation of CANNABIS use. -Recommend smoking cessation, provide patient with nicotine patch. -Provide safe and supportive care. -Management of major depressive disorder by primary admitting psychiatric team. Thank you for allowing us to participate in the care of this pleasant patient. Do not hesitate to contact us with questions. Someone can be reached from the [facility] hospitalist group all hours of the day at [phone] or via [facility]. Past Medical History Past Medical History: Asthma History of Any Multi-Drug Resistant Organisms: None Reported Past Surgical History: Tonsillectomy Past Psychological History: ADD/ADHD, Anxiety, Depression Smoking Status: Current some day smoker, Vaper Past Alcohol Use History: Occasional Past Drug Use History: Marijuana - Past Family History family Family Medical History: No Reported History Medications and Allergies Home Medications Medication Instructions Recorded Confirmed Type DULoxetine HCL [Cymbalta] 30 mg PO HS #30 cap 02/06/22 02/10/22 Rx QUEtiapine FUMARATE [SEROquel] 300 mg PO HS #30 tab 02/06/22 02/10/22 Rx Nicotine 14Mg/24Hr Patch [Habitrol] 1 patch TRANSDERM DAILY PRN 02/10/22 02/10/22 History Allergies Allergy/AdvReac Type Severity Reaction Status Date / Time No Known Allergies Allergy Verified 02/10/22 19:09 Physical Exam Vitals: Vital Signs Temp Pulse Resp BP Pulse Ox 02/12/22 08:39 97.5 F L 92 12 149/86 97 02/12/22 05:39 97.4 F L 99 18 123/81 96 Intake and Output 02/12/22 02/12/22 02/12/22 06:59 14:59 22:59 Other: Weight 119.5 kg Cranial Nerve Examination - Cranial Nerves Cranial Nerve II- Optic: Intact Cranial Nerve III- Oculomotor: Intact Cranial Nerve IV- Trochlear: Intact Cranial Nerve V- Trigeminal: Intact Cranial Nerve - Abducens: Intact Cranial Nerve VII- Facial: Intact Cranial Nerve VIII- Auditory: Intact Cranial Nerve IX- Glossopharyngeal: Intact Cranial Nerve X- Vagus: Intact Cranial Nerve XI- Accessory: Intact Cranial Nerve XII- Hypoglossal: Intact <Jozef Maloney - Last Filed: 02/12/22 18:50> History of Present Illness I reviewed the documentation as provided by the EZEQUIEL above, who is the original author of this note. I agree with the documented assessment and plan, with the following changes: None Physical Exam Osteopathic Statement: *. No significant issues noted on an osteopathic structural exam other than those noted in the History and Physical/Consult. Vitals: Vital Signs Temp Pulse Resp BP Pulse Ox 02/12/22 08:39 97.5 F L 92 12 149/86 97 02/12/22 05:39 97.4 F L 99 18 123/81 96 Intake and Output 02/12/22 02/12/22 02/12/22 06:59 14:59 22:59 Other: Weight 119.5 kg
[2022-02-12] MEDS: QUEtiapine 200 MG TAB PO SCH (19:12)
[2022-02-12] MEDS ORDERED: DULoxetine HCL 60 MG CAPSULE.DR PO SCH (21:00)
[2022-02-13 00:22] VITALS: RESP 16
[2022-02-13] MEDS: LORazepam 1 MG TAB PO PRN ×3 (00:32→16:20)
[2022-02-13] MEDS: DULoxetine HCL 30 MG CAPSULE.DR PO SCH ×2 (08:24→19:29)
[2022-02-13] MEDS: QUEtiapine 100 MG TAB PO SCH (08:24)
[2022-02-13] MEDS: NICOTINE 14MG/24HR PATCH TRANSDERM SCH (08:30)
[2022-02-13] MEDS: haloperidoL 5 MG TAB PO PRN ×2 (09:17→16:21)
--- NOTE | 2022-02-13 11:12 | P.PN ---
Progress Note - Text Progress Note Date: 02/13/22 Interval History: Patient was seen resting in bed and was directable and agreeable to speak with documentation writer in the office. The patient expresses that he is only in the hospital because of a disagreement with his mother. The patient expresses a strong desire to relocate to [place]. He is currently denying any suicidal or homicidal ideation, intention, and/or plan. He is denying any auditory or visual hallucinations. He reports no paranoia or other delusions. The patient has been adherent with his medications and is not reporting any significant side effects at this time. He is currently denying any overt manic or psychotic symptoms. He reports no increased goal-directed activity, peers excessive energy, or racing thoughts at this time. He denies any issues regarding his sleep or his appetite. The man has been filed due to a missing an appointment with [facility]. Patient states that he plans to waive and stipulate court. Mental Status Exam: General Appearance: Patient appears to be stated age is alert, directable, and cooperative. Behavior: Patient is calmly seated without any agitated behavior. Speech: Patient's speech is fluent and nonpressured. Mood/Affect: Mood is improving mildly, affect is congruent and constricted. Suicidality/Homicidality: Patient denies having any suicidal or homicidal ideation intent or plan. Perceptions: Patient denies any visual hallucinations and denies any auditory hallucinations Though content/process: There is no evidence of any delusional thought content and thought process is linear and goal-directed. Memory and concentration: AOX3, grossly intact for the purposes of this session Judgment and insight: Improving mildly Vital Signs Temp 97.0 F L 02/13/22 00:21 Pulse 122 H 02/13/22 00:21 Resp 16 02/13/22 00:21 BP 131/60 02/13/22 00:21 Pulse Ox 97 02/12/22 08:39 FiO2 Intake & Output 02/12/22 02/13/22 02/13/22 18:59 06:59 18:59 Weight 119.5 kg Assessment Major depressive disorder, recurrent severe, without psychotic features Cannabis use disorder Tobacco use disorder Plan: -Patient continues to meet criteria for inpatient psychiatric admission for symptom stabilization and safety. A demand for mental health court has been filed. -Medications: Cymbalta 30 mg by mouth twice a day for depression Seroquel 100 mg every morning and 200 mg by mouth daily at bedtime for mood stabilization -When necessary Ativan and Haldol for agitation/aggression. -NRT - nicotine patch -SW on board for discharge planning. Encouraged the patient to participate in milieu.
[2022-02-13] MEDS: ACETAMINOPHEN TAB 325 MG TAB PO PRN (14:20)
[2022-02-13] MEDS ORDERED: IBUPROFEN 400 MG TAB PO PRN (14:59)
[2022-02-13] MEDS ORDERED: BENZOCAINE 20 % GEL 11.9 GM TUBE MM ONE (14:59)
[2022-02-13] MEDS: QUEtiapine 200 MG TAB PO SCH (19:28)
[2022-02-14] MEDS: BENZOCAINE 20 % GEL 11.9 GM TUBE MM PRN ×2 (06:48→14:05)
[2022-02-14] MEDS: haloperidoL 5 MG TAB PO PRN ×3 (06:49→18:33)
[2022-02-14] MEDS: DULoxetine HCL 30 MG CAPSULE.DR PO SCH ×2 (07:45→18:56)
[2022-02-14] MEDS: NICOTINE 14MG/24HR PATCH TRANSDERM SCH (07:45)
[2022-02-14] MEDS: QUEtiapine 100 MG TAB PO SCH (07:45)
[2022-02-14] MEDS: LORazepam 1 MG TAB PO PRN ×2 (10:05→17:34)
--- NOTE | 2022-02-14 11:40 | P.PN ---
Progress Note - Text Progress Note Date: 02/14/22 Interval History: Patient was seen resting in bed and was directable and agreeable to speak with group underwriter in the office. The patient is primarily focused on discharge. He does express some mandaen preoccupation today and hence this provider a Bible with Bible verses highlighted. Furthermore, the patient does express some paranoia towards the treatment team. He states "regressed keeping me here longer in order to see how angry I'll be? Is some kind of weird test?" He is otherwise not reporting any auditory or visual hallucinations. He denies any other delusional thought content. He reports no suicidal or homicidal ideation, intention, and/or plan. He reports no issues regarding his sleep or his appetite. The patient signed a release of information for his grandfather. His grandfather contacted the psychiatric unit and states that he is bringing in the patient's journal as there is some disturbing content within the journal. In regards to the patient's tachycardia, the patient denies any chest pain, shortness of breath, blurry vision, or headaches. Mental Status Exam: General Appearance: Patient appears to be stated age is alert, directable, and cooperative. Behavior: Patient is calmly seated without any agitated behavior. Speech: Patient's speech is fluent and nonpressured. Mood/Affect: Mood is improving mildly, affect is congruent and constricted. Suicidality/Homicidality: Patient denies having any suicidal or homicidal ideation intent or plan. Perceptions: Patient denies any visual hallucinations and denies any auditory hallucinations Though content/process: The patient is preoccupied with discharge. Memory and concentration: AOX3, grossly intact for the purposes of this session Judgment and insight: Poor Vital Signs Temp 96.3 F L 02/14/22 06:52 Pulse 110 H 02/14/22 06:52 Resp 16 02/14/22 06:52 BP 134/72 02/14/22 06:52 Pulse Ox 97 02/12/22 08:39 FiO2 Assessment Major depressive disorder, recurrent severe, with psychotic features Cannabis use disorder Tobacco use disorder Plan: -Patient continues to meet criteria for inpatient psychiatric admission for symptom stabilization and safety. A demand for mental health court has been filed. -Medications: Cymbalta 30 mg by mouth twice a day for depression Seroquel 100 mg every morning and 200 mg by mouth daily at bedtime for mood stabilization -When necessary Ativan and Haldol for agitation/aggression. -NRT - nicotine patch -SW on board for discharge planning. Encouraged the patient to participate in milieu.
[2022-02-14] MEDS: ACETAMINOPHEN TAB 325 MG TAB PO PRN (14:34)
[2022-02-14] MEDS: QUEtiapine 200 MG TAB PO SCH (18:56)
[2022-02-14] MEDS: NICOTINE GUM (POLACRILEX) 2 MG GUM BUCCAL PRN (20:19)
[2022-02-15] MEDS: haloperidoL 5 MG TAB PO PRN ×2 (06:18→11:48)
[2022-02-15 06:20] VITALS: TEMP 97.5
[2022-02-15] MEDS: NICOTINE GUM (POLACRILEX) 2 MG GUM BUCCAL PRN ×4 (06:40→18:12)
[2022-02-15] MEDS: LORazepam 1 MG TAB PO PRN ×2 (07:13→11:54)
[2022-02-15] MEDS: QUEtiapine 100 MG TAB PO SCH (07:43)
[2022-02-15] MEDS: DULoxetine HCL 30 MG CAPSULE.DR PO SCH (07:43)
--- NOTE | 2022-02-15 11:48 | P.PN ---
Progress Note - Text Progress Note Date: 02/15/22 Interval History: Patient was seen resting in bed and was directable and agreeable to speak with junior technical writer in the office. Patient continues to be primarily focused with discharge. Collateral information was obtained by the patient's grandfather reports that the patient has been endorsing significant bizarre delusional thought content. He reports that the patient believed that his grandfather was a billionaire as well as was attempting to try and kill him. He also states that the patient has been very paranoid believing that people were placing bugs and trackers in his truck as well as in the home. When this was addressed with the patient, the patient reported that his grandfather believed that he (the patient) was the devil and that his grandfather is very faith and therefore want to kill him. The patient vehemently denies that he has any sort of mental illness. He also states that if he was not to be discharged in a few days, he would "go crazy and be violent." The patient was advised that this is not an appropriate response. In regards to the journals in question that the provider received from the patient's family, the patient vehemently states that "everything written there is just my heart." He states that none of the content written has any specific meaning other than just being art performed by this patient. Mental Status Exam: General Appearance: Patient appears to be stated age is alert, directable, and cooperative. Behavior: Patient is calmly seated without any agitated behavior. Speech: Patient's speech is fluent and nonpressured. Mood/Affect: Mood is "annoyed." Affect is irritable Suicidality/Homicidality: Patient denies having any suicidal or homicidal ideation intent or plan. Perceptions: Patient denies any visual hallucinations and denies any auditory hallucinations Though content/process: The patient is preoccupied with discharge. The patient endorses significant bizarre delusional thought content, faith preoccupation, paranoia, and delusions and surveillance Memory and concentration: AOX3, grossly intact for the purposes of this session Judgment and insight: Very poor Vital Signs Temp 97.5 F L 02/15/22 06:19 Pulse 101 H 02/15/22 06:19 Resp 16 02/15/22 06:19 BP 135/83 02/15/22 06:19 Pulse Ox 97 02/12/22 08:39 FiO2 Assessment Schizoaffective disorder, bipolar type Cannabis use disorder Tobacco use disorder Plan: -Patient continues to meet criteria for inpatient psychiatric admission for symptom stabilization and safety. A demand for mental health court has been filed. -Medications: Discontinue Cymbalta and Seroquel. Start Invega 6 mg by mouth at bedtime with plans to transition the patient to Invega Sustenna. Start Depakote 1000 mg by mouth at bedtime for mood stabilization -When necessary Ativan and Haldol for agitation/aggression. -NRT - nicotine patch -SW on board for discharge planning. Encouraged the patient to participate in milieu.
[2022-02-15] MEDS ORDERED: chlorproMAZINE 25 MG/ML 2 ML AMP IM PRN (13:38)
[2022-02-15] MEDS ORDERED: chlorproMAZINE 25 MG TAB PO ONE (13:38)
[2022-02-15] MEDS: chlorproMAZINE 25 MG TAB PO PRN (18:35)
[2022-02-15] MEDS ORDERED: DIVALPROEX ER 500 MG TAB.ER.24H PO SCH (21:00)
[2022-02-15] MEDS ORDERED: DIVALPROEX ER 250 MG TAB.ER.24H PO SCH (21:00)
[2022-02-15] MEDS ORDERED: PALIPERIDONE 6 MG TAB.ER.24 PO SCH (21:00)
[2022-02-16] MEDS: chlorproMAZINE 25 MG TAB PO PRN ×2 (08:03→16:35)
[2022-02-16] MEDS: LORazepam 1 MG TAB PO PRN ×2 (08:37→16:35)
[2022-02-16] MEDS: NICOTINE GUM (POLACRILEX) 2 MG GUM BUCCAL PRN ×3 (08:47→17:37)
[2022-02-16] MEDS ORDERED: PALIPERIDONE IM 234 MG/1.5 ML SYG IM STA (09:38)
--- NOTE | 2022-02-16 11:31 | P.PN ---
Progress Note - Text Progress Note Date: 02/16/22 Interval History: Patient was seen sitting in the hallway and was agreeable to speak with television script writer in the office. The patient continues to inquire about discharge. He is currently desiring to wave and stipulate mental health court. He has been adherent with his medications including the switch from Seroquel and Cymbalta to Depakote and Invega to address schizoaffective disorder. The patient vehemently denies any psychiatric symptoms at this time. He reports no auditory or visual hallucinations. He denies any paranoia or other delusions. He vehemently denies any suicidal or homicidal ideation, intention, and/or plan. The patient expresses that he just wants to be outside and be in his truck. He reports that he will "go crazy if I'm still in here." He continues to have limited insight and judgment. He reports that his whole family has been confused and not himself. He was informed by this provider that he was the one with delusional thoughts that required inpatient psychiatric admission. Patient is reluctantly agreeing at this time. Mental Status Exam: General Appearance: Patient appears to be stated age is alert, directable, and cooperative. Behavior: Patient is calmly seated without any agitated behavior. Speech: Patient's speech is fluent and nonpressured. Mood/Affect: Mood is "I just want to leave." Affect is irritable and guarded. Suicidality/Homicidality: Patient denies having any suicidal or homicidal ideation intent or plan. Perceptions: Patient denies any visual hallucinations and denies any auditory hallucinations Though content/process: The patient is preoccupied with discharge. The patient is not endorsing any overt delusional thought content and state. He appears to be guarded regarding this. Memory and concentration: AOX3, grossly intact for the purposes of this session Judgment and insight: Very poor Vital Signs Temp 97.5 F L 02/15/22 06:19 Pulse 114 H 02/16/22 08:04 Resp 16 02/15/22 06:19 BP 143/85 02/16/22 08:04 Pulse Ox 97 02/12/22 08:39 FiO2 Assessment Schizoaffective disorder, bipolar type Cannabis use disorder Tobacco use disorder Plan: -Patient continues to meet criteria for inpatient psychiatric admission for symptom stabilization and safety. A demand for mental health court has been filed. -Medications: Increase Invega to 9 mg by mouth daily for schizoaffective disorder. We will administer Invega Sustenna 234 mg IM today. Increase Depakote to 1500 mg by mouth at bedtime for mood stabilization -When necessary Ativan and Haldol for agitation/aggression. -NRT - nicotine patch -SW on board for discharge planning. Encouraged the patient to participate in milieu.
[2022-02-16] MEDS: BENZOCAINE 20 % GEL 11.9 GM TUBE MM PRN (13:28)
[2022-02-16] MEDS ORDERED: PALIPERIDONE 3 MG TAB.ER.24 PO SCH (21:00)
[2022-02-16] MEDS ORDERED: DIVALPROEX ER 500 MG TAB.ER.24H PO SCH (21:00)
[2022-02-17 06:59] VITALS: BP 127/71; PULSE 63
[2022-02-17] MEDS: LORazepam 1 MG TAB PO PRN (07:13)
[2022-02-17] MEDS: NICOTINE GUM (POLACRILEX) 2 MG GUM BUCCAL PRN (07:37)
--- NOTE | 2022-02-17 11:22 | P.DS ---
Providers Date of admission: 02/11/22 00:09 Expected date of discharge: 02/17/22 Attending physician: Jelani Starr MD Consults: 02/11/22 00:20 Consult Physician Routine Consulting Provider: [facility]ician Consult Reason/Comments: h and p Do you want consulting provider notified?: Yes, Notify in am Primary care physician: Patrice Han MD - Discharge Diagnosis(es) (1) Schizoaffective disorder, bipolar type Current Visit: Yes Status: Acute Priority: High (2) Cannabis use disorder, mild, abuse Current Visit: Yes Status: Chronic Priority: Medium (3) Tobacco use disorder Current Visit: Yes Status: Chronic Priority: Medium Hospital Course: Admission HPI: Initial psychiatric evaluation was completed by Dr. Hicks on 02/11/2022 who wrote: "Patient is a 26-year-old male who is currently living out of his truck, is currently unemployed, has no kids and is unmarried. Patient presented to the hospital for the second time this month, is on a deferral and has demand for hearing. He reports he is here because his mother was "uncomfortable" with not knowing what is going on with him and so she called police. He reports she threw a temper tantrum and ruins his life. He reports he was talking to his licensed clinical social worker about continuing his treatment in [place] and his Mom became upset and "crazy" and she called the [employer]. He missed his appointment with [facility] scheduled for 02/10/22 (yesterday) and states he could not use his vehicle. He reports his grandfather took his truck flores and hid it. On asking him the details stated in his ER assessment, he states he told him mother if she touches his grandparents, he will kill her. Patient denies any suicidal or homicidal ideations intent or plan. At this time patient denies any auditory or visual hallucinations. Patient denies any flight of ideas, racing thoughts, and increased in goal directed behavior. He reports sleeping a couple hours per night because he reports having insomnia since he was a kid as well as chronic back pain. Patient admits to daily marijuana use. He denies alcohol use. Patient reports he is diagnosed with Bipolar Disorder, Schizophrenia, Psychosis. Patient reports being compliant with medications after his last discharge from [facility] this month. Patient reports 4 prior psychiatric hospitalizations. Patient missed his [facility] follow-up appointment on February 10, 2022. Patient denies any history of suicide attempts in the past." Hospital course: Upon admission to the unit patient was initially noted to be irritable, guarded, and constricted. Patient was however directable and agreeable to commence treatment. Patient got along well with other patients on the unit and followed unit protocol. Patient was compliant with the medications and denied any side effects throughout hospital course. Patient was started on Seroquel and Cymbalta for management of major depressive disorder without psychotic features. Patient spoke of his stressors and engaged in therapy both group and individual. Patient was also seen by medical team for history and physical exam. As the patient's hospitalization progressed, collateral information was obtained by the patient's grandfather who reported a significant history of psychotic symptoms. When confronted with the history provided by his grandfather, the patient did endorse significant psychotic symptoms of paranoia, roman catholic preoccupation, and grandiosity. The decision was made to transition the patient from Cymbalta and Seroquel to Depakote and Invega for management of schizoaffective disorder, bipolar type. The patient is also scheduled for court hearing as a demand has been filed due to nonadherence with treatment. Over the course of the hospitalization, the patient displayed significant improvement in regards her target symptoms of irritability, paranoia, and grandiosity. He became less forthcoming with any grandiose or religiously preoccupied delusions. He tolerated medications well. He developed better insight and judgment. On the day of discharge, the patient is not reporting any suicidal or homicidal ideation, intention, and/or plan. He is not reporting any auditory or visual hallucinations. He denies any paranoia or other delusions. He denies any access to firearms or other weapons. The patient expresses understanding that he is scheduled to go to court this coming Sunday02/22/2022. He expresses that if he is not to attend court, he will be brought back to the psychiatric unit. The patient has been counseled in length on importance of medication adherence and appropriate outpatient follow-up. The patient does have a significant history of substance use however was counseled on abstaining from all substances including alcohol, marijuana, and nicotine. Prior to discharge, family meeting will be arranged by licensed clinical social worker to answer any questions and ensure safety. Throughout the course of the hospitalization patient gradually improved with regards to mood, anxiety, sleep and became future oriented with improved insight and judgment. On the day of discharge patient denied any suicidal or homicidal ideations intent or plan denied any auditory or visual hallucinations. Patient endorsed wanting to live for his health and family. The patient denied any access to guns or weapons. Patient denied any paranoia and did not endorse any delusions. Patient does not have a significant history of substance abuse however was counseled on abstaining from all substances including alcohol and marijuana. Patient was offered however declined inpatient substance-abuse rehab. Patient was also counseled on the medications and need for regular compliance and was encouraged to follow-up with their outpatient appointment for mental health and also for primary care. Prior to discharge a family meeting will be arranged by licensed clinical social worker to answer any questions and ensure safety upon discharge. Mental status exam: General Appearance: Patient appears to be stated age is alert, pleasant, and co operative. Patient is in no acute distress and has fair hygiene and grooming Behavior: Patient is calmly seated without any agitated behavior. Eye contact is appropriate. Speech: Patient's speech is fluent and nonpressured. Mood/Affect: Patient reports their mood is "feeling good", affect is congruent and euthymic. More range of affect today. Suicidality/Homicidality: Patient denies having any suicidal or homicidal ideation intent or plan. Perceptions: Patient denies any auditory or visual hallucinations. Though content/process: There is no evidence of any delusional thought content a nd thought process is linear and goal-directed. more future oriented Memory and concentration: AOX3, grossly intact for the purposes of this session. Can spell "WORLD" backwards correctly. Judgment and insight: Improved with guarded prognosis Vital Signs Temp 97.5 F L 02/17/22 06:48 Pulse 63 02/17/22 06:48 Resp 16 02/17/22 06:48 BP 127/71 02/17/22 06:48 Pulse Ox 97 02/12/22 08:39 FiO2 Laboratory Results Urine Color Yellow 02/10/22 20:35 Urine Appearance Clear (Clear) 02/10/22 20:35 Urine pH 6.0 (5.0-8.0) 02/10/22 20:35 Ur Specific [place] 1.015 (1.001-1.035) 02/10/22 20:35 Urine Protein Negative (Negative) 02/10/22 20:35 Urine Glucose (UA) Negative (Negative) 02/10/22 20:35 Urine Ketones Negative (Negative) 02/10/22 20:35 Urine Blood Negative (Negative) 02/10/22 20:35 Urine Nitrite Negative (Negative) 02/10/22 20:35 Urine Bilirubin Negative (Negative) 02/10/22 20:35 Urine Urobilinogen <2.0 mg/dL (<2.0) 02/10/22 20:35 Ur Leukocyte Esterase Small (Negative) H 02/10/22 20:35 Urine RBC <1 /hpf (0-5) 02/10/22 20:35 Urine WBC 9 /hpf (0-5) H 02/10/22 20:35 Urine Mucus Rare /hpf (None) H 02/10/22 20:35 Urine Opiates Screen Not Detected (NotDetected) 02/10/22 19:01 Ur Oxycodone Screen Not Detected (NotDetected) 02/10/22 19:01 Urine Methadone Screen Not Detected (NotDetected) 02/10/22 19:01 Ur Propoxyphene Screen Not Detected (NotDetected) 02/10/22 19:01 Ur Barbiturates Screen Not Detected (NotDetected) 02/10/22 19:01 Valproic Acid 45.9 ug/mL 02/17/22 07:00 U Tricyclic Antidepress Detected (NotDetected) H 02/10/22 19:01 Ur Phencyclidine Scrn Not Detected (NotDetected) 02/10/22 19:01 Ur Amphetamines Screen Not Detected (NotDetected) 02/10/22 19:01 U Methamphetamines Scrn Not Detected (NotDetected) 02/10/22 19:01 U Benzodiazepines Scrn Not Detected (NotDetected) 02/10/22 19:01 Urine Cocaine Screen Not Detected (NotDetected) 02/10/22 19:01 U Marijuana (THC) Screen Detected (NotDetected) H 02/10/22 19:01 Coronavirus (PCR) Not Detected (Not Detectd) 02/10/22 22:21 Impression: Schizoaffective disorder, bipolar type Cannabis use disorder Tobacco use disorder Plan: -Continue with discharge today as patient has improved and stabilized psychiatrically and is not currently an imminent threat to himself and/or others. Patient will remain at chronically elevated risk for harm to self and/or others due to his history of nonadherence to treatment and heavy cannabis use -Continue medications: Depakote ER 1500 mg by mouth at bedtime for mood stabilization Invega 9 mg daily at bedtime for 2 days Invega Sustenna 234 mg IM was administered on 02/16/2022. Second loading dose of 156 mg of Invega to be administered on 02/23/2022. Nicorette gum for nicotine cessation -Patient was counseled on the need for medication compliance and appropriate follow-up at mental health and also primary care for medical issues. Patient verbalized understanding and agreed. -Social work to arrange for and conduct family meeting to ensure safety upon discharge and answer any questions/concerns. Social work also to arrange for patients follow up appointments with [facility] for psychiatric care along with follow up with primary care provider. -Patient counseled on abstaining from recreational drugs and marijuana and alcohol. Was informed/educated on the adverse effects on their physical and mental health. Patient verbally agreed and understood. Patient was offered substance abuse treatment however declined at this time. -Patient was instructed to return to the hospital or seek immediate medical care if their psychiatric or medical symptoms do worsen or reoccur. -Psychoeducation and supportive therapy provided to patient. Risks and benefits of pharmacological treatment versus the risks and benefits of nontreatment weight and discussed. Informed consent discussion held. Common side effects of psychotropics discussed such as, but not limited to headache, GI disturbance, sexual dysfunction, movement disorders, sedation, and orthostatic hypotension. Life threatening and blackbox warnings of prescribed medications also discussed. Potential risks of operating a vehicle or heavy machinery discussed with patient at length. Advised on importance of compliance and a reliable and responsible manner. Patient advised to review FDA consumer labeling of all medications prior to taking. Patient verbalized understanding of potential risks, and agrees with current treatment plan. Patient advised to medically contact physician/emergency personnel if any acute changes in condition occur. Allergies Allergy/AdvReac Type Severity Reaction Status Date / Time No Known Allergies Allergy Verified 02/10/22 19:09 Patient Condition at Discharge: Stable Plan - Discharge Summary New Discharge Prescriptions: New Divalproex ER [Depakote ER] 1,500 mg PO HS 30 Days tab Paliperidone [Invega] 9 mg PO HS 2 Days tab Paliperidone IM [Invega Sustenna] 156 mg IM QMONTHLY #1 each Nicotine Gum (Polacrilex) [Nicorette] 2 mg BUCCAL Q2HR PRN 30 Days pieceofgum PRN Reason: Nicotine Cravings Discontinued DULoxetine HCL [Cymbalta] 30 mg PO HS #30 cap QUEtiapine FUMARATE [SEROquel] 300 mg PO HS #30 tab Nicotine 14Mg/24Hr Patch [Habitrol] 1 patch TRANSDERM DAILY PRN PRN Reason: Nicotine Cravings Discharge Medication List Divalproex ER [Depakote ER] 1,500 mg PO HS 30 Days tab 02/17/22 [Rx] Nicotine Gum (Polacrilex) [Nicorette] 2 mg BUCCAL Q2HR PRN 30 Days pieceofgum 02/17/22 [Rx] Paliperidone IM [Invega Sustenna] 156 mg IM QMONTHLY #1 each 02/17/22 [Rx] Paliperidone [Invega] 9 mg PO HS 2 Days tab 02/17/22 [Rx] Follow up Appointment(s)/Referral(s): [facility] [Outside] - 02/22/22 12:00 pm (intake) Patrice Han MD [Primary Care Provider] - 1-2 days Patient Instructions/Handouts: How to Stop Smoking (DC), Mood Disorders (DC), Depression (DC) Activity/Diet/Wound Care/Special Instructions: Activity and diet as tolerated. Avoid the use of street drugs and alcohol. Take all medications as prescribed. When you are in need of refills on your medications please contact your medical provider and/or outpatient psychiatrist to have this done. Please go to scheduled outpatient appointment for aftercare treatment. If symptoms return or become worse, call the crisis line at and/or go to the nearest emergency room for evaluation Discharge Disposition: HOME SELF-CARE
== END 2022-02-17 12:25 | disposition home or self-care (01) | DRG 885 ==
LOC: EC 17:24 → 3MHU 02-11 00:09
PROVIDERS: ADMIT Psychiatry & Neurology Psychiatry; ATTEND Psychiatry & Neurology Psychiatry
DX: F25.0 Schizoaffective disorder, bipolar type (principal); F12.90 Cannabis use, unspecified, uncomplicated; F17.210 Nicotine dependence, cigarettes, uncomplicated; F41.9 Anxiety disorder, unspecified; G47.00 Insomnia, unspecified; G89.29 Other chronic pain; J45.909 Unspecified asthma, uncomplicated; Z56.0 Unemployment, unspecified; Z20.822 Contact with and (suspected) exposure to COVID-19
CPT/HCPCS: 80164; 80306; 81001; 82075; 87635; 99285

== ENCOUNTER 2023-05-09 20:45 | Inpatient (IN) | payer OTHER ==
--- NOTE | 2023-05-09 21:55 | ED ---
General Adult HPI - General Stated complaint: Mental Health Time Seen by Provider: 05/09/23 21:53 Source: RN notes reviewed - History of Present Illness Initial comments: 27 year old male presents to the emergency department with a chief complaint of worsening depression. Father offers patient is having some paranoia. Vital signs stable upon initial evaluation. Patient eloped prior to completion of care and room assignment AGAINST MEDICAL ADVICE. - Related Data Previous Rx's Medication Instructions Recorded Divalproex ER [Depakote ER] 1,500 mg PO HS 30 Days tab 02/17/22 Nicotine Gum (Polacrilex) 2 mg BUCCAL Q2HR PRN 30 Days 02/17/22 [Nicorette] pieceofgum Paliperidone IM [Invega Sustenna] 156 mg IM QMONTHLY #1 each 02/17/22 Paliperidone [Invega] 9 mg PO HS 2 Days tab 02/17/22 Allergies Allergy/AdvReac Type Severity Reaction Status Date / Time No Known Allergies Allergy Verified 05/09/23 21:53 Review of Systems ROS Statement: Those systems with pertinent positive or pertinent negative responses have been documented in the HPI. ROS Other: All systems not noted in ROS Statement are negative. Past Medical History Past Medical History: Asthma History of Any Multi-Drug Resistant Organisms: None Reported Past Surgical History: Tonsillectomy Past Psychological History: ADD/ADHD, Anxiety, Depression Smoking Status: Current some day smoker, Vaper Past Alcohol Use History: Occasional Past Drug Use History: Marijuana - Past Family History family Family Medical History: No Reported History General Exam - General Exam Comments Initial Comments: Visual Physical Exam Vital signs reviewed General: Well-appearing, nontoxic, no acute distress. Head: Normocephalic, atraumatic Eyes: PERRLA, EOMI ENT: Airway patent Chest: Nonlabored breathing Skin: No visual rash, normal skin tone Neuro: Alert and oriented 3 Musculoskeletal: No gross abnormalities I performed the quick note portion of this exam, verbal signature Gissel Antunez PA-C Course Vital Signs 05/09/23 21:53 Temperature 98.9 F Pulse Rate 84 Respiratory 18 Rate Blood Pressure 162/107 O2 Sat by Pulse 98 Oximetry Medical Decision Making - Lab Data Lab Results 05/10/23 05/10/23 Range/Units 00:04 00:35 Urine Opiates Screen Not Detected (NotDetected) Ur Oxycodone Screen Not Detected (NotDetected) Urine Methadone Screen Not Detected (NotDetected) Ur Propoxyphene Screen Not Detected (NotDetected) Ur Barbiturates Screen Not Detected (NotDetected) U Tricyclic Antidepress Not Detected (NotDetected) Ur Phencyclidine Scrn Not Detected (NotDetected) Ur Amphetamines Screen Not Detected (NotDetected) U Methamphetamines Scrn Not Detected (NotDetected) U Benzodiazepines Scrn Not Detected (NotDetected) Urine Cocaine Screen Not Detected (NotDetected) U Marijuana (THC) Screen Detected H (NotDetected) Coronavirus (PCR) Not Detected (Not Detectd) Disposition Clinical Impression: Depression Disposition: LEFT AGAINST MEDICAL ADVICE Condition: Undetermined Referrals: Patrice Han MD [Primary Care Provider] - 1-2 days Time of Disposition: 02:37
[2023-05-10 00:59] LABS: Amphetamine Screen,Urine Not Detected (NotDetected); Barbiturate Screen,Urine Not Detected (NotDetected); Benzodiazepines Screen,Urine Not Detected (NotDetected); Cocaine Screen,Urine Not Detected (NotDetected); Methadone Screen, Urine Not Detected (NotDetected); Opiate Screen,Urine Not Detected (NotDetected); Oxycodone Screen, Urine Not Detected (NotDetected); Phencyclidine Screen,Urine Not Detected (NotDetected); Tricyclic Antidepressant,Urine Not Detected (NotDetected); Urn Cannabinoid Scrn Detected (NotDetected)
[2023-05-10] MEDS ORDERED: OLANZapine 10 MG VIAL IM PRN (10:49)
[2023-05-10] MEDS ORDERED: OLANZapine 7.5 MG TAB PO PRN (10:49)
[2023-05-10] MEDS ORDERED: ACETAMINOPHEN TAB 325 MG TAB PO PRN (10:49)
[2023-05-10] MEDS ORDERED: MAGNESIUM HYDROXIDE 2,400 MG/30 ML CUP PO PRN (10:49)
[2023-05-10] MEDS ORDERED: MAG HYDROX/AL HYDROX/SIMETH 30 ML CUP PO PRN (10:49)
[2023-05-10] MEDS ORDERED: hydrOXYzine HCL 50 MG/ML 1 ML VIAL IM PRN (10:51)
[2023-05-10] MEDS ORDERED: hydrOXYzine pamoate 25 MG CAP PO PRN (10:51)
[2023-05-10] MEDS ORDERED: OLANZapine ODT 5 MG TAB PO STA (13:37)
[2023-05-10] MEDS: NICOTINE 14MG/24HR PATCH TRANSDERM SCH (13:42)
--- NOTE | 2023-05-10 14:06 | P.HP ---
Psychiatric H&P - . H&P Date: 05/10/23 History & Physical: Allergies Allergy/AdvReac Type Severity Reaction Status Date / Time No Known Allergies Allergy Verified 05/10/23 11:04 Vital Signs Temp 98.3 F 05/10/23 13:02 Pulse 114 H 05/10/23 13:02 Resp 20 05/10/23 13:02 BP 170/90 05/10/23 13:02 Pulse Ox 98 05/10/23 06:00 FiO2 Intake & Output 05/09/23 05/10/23 05/10/23 18:59 06:59 18:59 Weight 108.862 kg 103.164 kg Laboratory Last Values Urine Opiates Screen Not Detected (NotDetected) 05/10/23 00:35 Ur Oxycodone Screen Not Detected (NotDetected) 05/10/23 00:35 Urine Methadone Screen Not Detected (NotDetected) 05/10/23 00:35 Ur Propoxyphene Screen Not Detected (NotDetected) 05/10/23 00:35 Ur Barbiturates Screen Not Detected (NotDetected) 05/10/23 00:35 U Tricyclic Antidepress Not Detected (NotDetected) 05/10/23 00:35 Ur Phencyclidine Scrn Not Detected (NotDetected) 05/10/23 00:35 Ur Amphetamines Screen Not Detected (NotDetected) 05/10/23 00:35 U Methamphetamines Scrn Not Detected (NotDetected) 05/10/23 00:35 U Benzodiazepines Scrn Not Detected (NotDetected) 05/10/23 00:35 Urine Cocaine Screen Not Detected (NotDetected) 05/10/23 00:35 U Marijuana (THC) Screen Detected (NotDetected) H 05/10/23 00:35 Coronavirus (PCR) Not Detected (Not Detectd) 05/10/23 00:04 05/10/23 14:05 IDENTIFYING DATA: Patient is a single, unemployed, 27-year-old male with significant history of major depression with psychotic features who present ed to our hospital on 05/10/2023 for worsening depression and psychotic symptoms HPI: Patient presented to the hospital on 05/10/2023, brought into the hospital at the recommendation of his family for psychiatric evaluation. The patient has been "struggling with scary unpleasant thoughts." He was noted to be very paranoid and concerned about the electronics in his home. He quit his job recently. His family has been expressing concern as the patient has been off medications for a few months. Furthermore, the patient has been using marijuana daily in order to help him with sleep. The patient was agreeable to voluntary admission on to the psychiatric unit. Upon evaluation on the psychiatric unit, the patient reports that he has not been doing well for the past few weeks. He reports that he has been struggling with excessive guilt feeling like he has let down multiple individuals. He does admit to suicidal thoughts. He does report that he is experiencing auditory hallucinations that are telling him to hurt himself. Furthermore, the patient does report zoroastrian preoccupation, ideas of reference, and loose associations. He states that he stopped taking his medications a few months ago. He reports that he has not been sleeping well. He does report significant symptoms of depression including low motivation, excessive guilt, anhedonia, decreased appetite, and suicidal thoughts. Although he does report excessive energy, he is not reporting any other symptoms of bipolar disorder. The patient is agreeable to the reinitiation of his medications. He does report that the medications are helping when he was taking them. He is unable to provide a clear reason as to why he stopped the medications but he has been noted that he stopped them because it was interfering with his ability to work. PAST PSYCHIATRIC HISTORY: Patient has a diagnosis of schizoaffective disorder and cannabis use disorder. He was last discharged on a regimen of Invega Sustenna and Depakote. He was last hospitalized on our psychiatric unit in January and February 2022. He was previously open with [facility] but is currently not open with any outpatient psychiatric provider. He does not report any prior attempts at suicide. PMH: Past Medical History: Asthma History of Any Multi-Drug Resistant Organisms: None Reported Past Surgical History: Tonsillectomy Past Psychological History: ADD/ADHD, Anxiety, Depression Smoking Status: Current some day smoker, Vaper Past Alcohol Use History: Occasional Past Drug Use History: Marijuana ALLERGIES: NO KNOWN DRUG ALLERGIES CHEMICAL DEPENDENCY HISTORY: The patient does report that he has been using excessive amounts of marijuana. He reports that he has been using it daily. He does report tobacco use and approximates half a pack per day. He reports rare a lcohol use but states that he had a beer "the other day." He denies any illicit drug use but reports using cocaine on his 24nd birthday. FAMILY PSYCHIATRIC/SUBSTANCE USE HISTORY: Maternal grandmother with dementia SOCIAL HISTORY: Patient was born and raised in [place], [place]. He completed high school. No reported legal history. He is currently unemployed. Father when he was 14 years old from pancreatic cancer. He reports he was close with his father. Mother remarried stepfather when he was 15 years old. He is not close with his stepfather. He currently lives with his grandparents. MENTAL STATUS EXAM: General Appearance: Patient appears to be stated age is alert, directable, and attempts to cooperate. Patient appears to have very disheveled hygiene and grooming. Behavior: Patient is seated without any agitated behavior. Psychomotor slowing is evident. Tearful. Speech: Patient's speech is fluent and nonpressured. Monotone and nonspontaneous. Mood/Affect: Patient reports their mood is depressed, affect is congruent and tearful. Suicidality/Homicidality: Patient reports suicidal ideation but denies any homicidal ideation. Perceptions: Patient does admit to auditory and visual hallucinations. Though content/process: Ruminative, excessive guilt, dysphoric, religiously preoccupied, ideas of reference, loose association, paranoia Memory and concentration: AOX3, grossly intact for the purposes of this session. Can spell "WORLD" backwards Judgment and insight: Fair STRENGTHS/WEAKNESSES: Strength is that the patient has fair insight. Weakness is that the patient is nonadherent with treatment and uses copious amounts marijuana INTELLECT: average IMPRESSIONS: Major depressive disorder, recurrent, severe, with psychotic features Cannabis use disorder Nicotine dependence PLAN: -Patient is admitted under voluntary status to [facility] for stabilization of psychiatric symptoms and safety. Patient signed adult voluntary form and medication consent and is placed in patient's chart. -Medications: 1 time dose of Zyprexa Zydis for patient's acute presentation. Depakote 500 mg by mouth at bedtime for mood stabilization Invega 3 mg by mouth at bedtime for psychosis and mood -Zyprexa and Vistaril PRN for agitation/aggression -Patient was counselled on substance abuse and desired to cut back on use -Patient was informed of the risks, benefits and side effects of the medication and patient verbally consented to taking the medications. Patient signed med consent form and was placed in chart. -Internal Medicine consult to perform medical evaluation and physical. -NRT - nicotine patch -SW on board for discharge planning. Encourage patient to participate in groups to work on coping skills. 05/10/23 14:06
[2023-05-10] MEDS ORDERED: PALIPERIDONE 3 MG TAB.ER.24 PO SCH (21:00)
[2023-05-10] MEDS: DIVALPROEX ER 500 MG TAB.ER.24H PO SCH (21:01)
--- NOTE | 2023-05-11 05:07 | P.PN ---
Progress Note - Text Progress Note Date: 05/11/23 continues to be psychotic and inappropriate for evaluation at this time
[2023-05-11] MEDS: NICOTINE 14MG/24HR PATCH TRANSDERM SCH (08:22)
[2023-05-11 08:29] LABS: Basophils % (A) 0 %; Eosinophils # (A) 0.2 k/uL (0-0.7); Eosinophils % (A) 3 %; HGB 17.2 gm/dL (13.0-17.5); Lymphocytes # (A) 2.5 k/uL (1.0-4.8); Lymphocytes % (A) 29 %; MCH 29.6 pg (25.0-35.0); MCHC 34.4 g/dL (31.0-37.0); MCV 86.2 fL (80.0-100.0); Monocytes # (A) 0.5 k/uL (0-1.0); Monocytes % (A) 6 %; Neutrophils # (A) 5.2 k/uL (1.3-7.7); Neutrophils % (A) 61 %; Platelet Count 235 k/uL (150-450); RBC 5.81 m/uL (4.30-5.90); RDW 12.2 % (11.5-15.5); WBC 8.6 k/uL (3.8-10.6)
[2023-05-11 09:08] LABS: ALT 33 U/L (4-49); AST 30 U/L (17-59); African American GFR (CKD) >90 (>60 ml/min/1.73 sqM); Alkaline Phosphatase 75 U/L (38-126); Anion Gap 10 mmol/L; Blood Urea Nitrogen 16 mg/dL (9-20); Calcium 9.8 mg/dL (8.4-10.2); Carbon Dioxide 24 mmol/L (22-30); Chloride 105 mmol/L (98-107); Glucose 92 mg/dL (74-99); Non-African American GFR(CKD) >90 (>60 ml/min/1.73 sqM); Potassium 4.3 mmol/L (3.5-5.1); Sodium 139 mmol/L (137-145); Total Bilirubin 1.1 mg/dL (0.2-1.3); Total Protein 7.9 g/dL (6.3-8.2)
--- NOTE | 2023-05-11 11:28 | P.PN ---
Progress Note - Text Progress Note Date: 05/11/23 Interval History: Patient was seen reading in his room and was directable and agreeable to speak with investment underwriter in his room. The patient is reporting that he is feeling significant better. He reports that he has been able to stop his thoughts of excessive guilt and paranoia. He is not endorsing any suicidal or homicidal ideation today. He continues to report that he does experiences auditory hallucinations however they are less severe. He does report that he continues to experience these delusional thought patterns and racing thoughts however he is able to acknowledge that they are not real. He reports that he has been slowly gaining the ability to slow down and ground himself back to reality. He reports no issues regarding his sleep or his appetite. He denies any medical issues or concerns. He does acknowledge that his blood pressure runs high. Mental Status Exam: General Appearance: Patient appears to be stated age is alert, directable, and cooperative. Behavior: Patient is calmly seated without any agitated behavior. Speech: Patient's speech is fluent and nonpressured. Mood/Affect: Mood is improving mildly, affect is congruent and blunted. Suicidality/Homicidality: Patient denies having any suicidal or homicidal ideation, intention, and/or plan. Perceptions: Patient denies any visual hallucinations and denies any auditory hallucinations Though content/process: Patient does acknowledge delusional thoughts and rumination. Memory and concentration: AOX3, grossly intact for the purposes of this session Judgment and insight: Improving mildly Vital Signs Temp 98.3 F 05/10/23 13:02 Pulse 114 H 05/10/23 13:02 Resp 20 05/10/23 13:02 BP 170/90 05/10/23 13:02 Pulse Ox 98 05/10/23 06:00 FiO2 Intake & Output 05/10/23 05/11/23 05/11/23 18:59 06:59 18:59 Weight 103.164 kg Laboratory Results - Last 24 Hours 05/11/23 05/11/23 08:01 08:01 WBC 8.6 RBC 5.81 Hgb 17.2 Hct 50.0 MCV 86.2 MCH 29.6 MCHC 34.4 RDW 12.2 Plt Count 235 MPV 8.0 Neutrophils % 61 Lymphocytes % 29 Monocytes % 6 Eosinophils % 3 Basophils % 0 Neutrophils # 5.2 Lymphocytes # 2.5 Monocytes # 0.5 Eosinophils # 0.2 Basophils # 0.0 Sodium 139 Potassium 4.3 Chloride 105 Carbon Dioxide 24 Anion Gap 10 BUN 16 Creatinine 0.98 Est GFR (CKD-EPI)AfAm >90 Est GFR (CKD-EPI)NonAf >90 Glucose 92 Calcium 9.8 Total Bilirubin 1.1 AST 30 ALT 33 Alkaline Phosphatase 75 Total Protein 7.9 Albumin 5.0 TSH 1.170 Assessment Major depressive disorder, recurrent, severe, with psychotic features Cannabis use disorder Nicotine dependence Plan: -Patient continues to meet criteria for inpatient psychiatric admission for symptom stabilization and safety. Patient has signed adult voluntary form and medication consent and was placed in patient's chart. Patient signed AMA form for discharge - discharge due 05/15/2023. -Medications: Depakote 500 mg by mouth at bedtime for mood stabilization Increase invega to 6 mg by mouth at bedtime for psychosis and mood -24 hour urine metanephrines ordered to rule out pheochromocytoma. Concern due to elevated BP, HR, and reports of sweats, and panic. -When necessary Zyprexa and vistaril for agitation/aggression. -NRT - nicotine patch -SW on board for discharge planning. Encouraged the patient to participate in milieu.
[2023-05-11] MEDS ORDERED: ALBUTEROL HFA INHALER INHALATION PRN (16:45)
--- NOTE | 2023-05-11 18:04 | P.MDCNMH ---
History of Present Illness H&P Date: 05/11/23 Chief Complaint: Medical management 27-year-old man with history of asthma presented for for mental health evaluation. Medicine was consulted for medical management. Patient has no complaints at this time. He does appear psychotic on exam and is unable to provide meaningful history. Review of systems therefore cannot be reliable due to this mental condition. Gen: awake, alert HEENT: normocephalic, atraumatic, good hearing acuity, moist mucous membranes Resp: good air exchange, breathing comfortably with no accessory muscle use CVS: good distal perfusion x 4, GI: soft, NTTP, ND : no SPT, no CVAT, keating catheter not present MSK: no pitting edema, no clubbing Neuro: non-focal, moving all extremities Psych: Cooperative, psychosis Assessment: Asthma without exacerbation Psychosis Plan: Patient is afebrile, 139/88, heart rate 137, 98% on room air. CBC, basic metabolic panel is unremarkable. Liver function tests are unremarkable. TSH is 1.17. Urine tox was positive for marijuana. Covid was negative. UA was ordered, and I agree Metanephrines ordered Resume patient's albuterol 2 puffs every 6 hours when necessary Patient Is full code Past Medical History Past Medical History: Asthma History of Any Multi-Drug Resistant Organisms: None Reported Past Surgical History: Tonsillectomy Past Anesthesia/Blood Transfusion Reactions: No Reported Reaction Past Psychological History: ADD/ADHD, Anxiety, Depression Smoking Status: Current some day smoker, Vaper Past Alcohol Use History: Occasional Past Drug Use History: Marijuana - Past Family History family Family Medical History: No Reported History Medications and Allergies Home Medications Medication Instructions Recorded Confirmed Type Albuterol Inhaler [Ventolin Hfa 2 puff INHALATION Q6H PRN 05/11/23 05/11/23 History Inhaler] Allergies Allergy/AdvReac Type Severity Reaction Status Date / Time No Known Allergies Allergy Verified 05/10/23 11:04 Physical Exam Osteopathic Statement: *. No significant issues noted on an osteopathic structural exam other than those noted in the History and Physical/Consult. Vitals: Vital Signs Temp Pulse Resp BP 05/11/23 13:08 137 H 16 139/88 05/11/23 06:53 97.4 F L 106 H 16 170/92 Cranial Nerve Examination - Cranial Nerves Cranial Nerve II- Optic: Intact Cranial Nerve III- Oculomotor: Intact Cranial Nerve IV- Trochlear: Intact Cranial Nerve V- Trigeminal: Intact Cranial Nerve - Abducens: Intact Cranial Nerve VII- Facial: Intact Cranial Nerve VIII- Auditory: Intact Cranial Nerve IX- Glossopharyngeal: Intact Cranial Nerve X- Vagus: Intact Cranial Nerve XI- Accessory: Intact Cranial Nerve XII- Hypoglossal: Intact Results CBC & Chem 7: 05/11/23 08:01 05/11/23 08:01
[2023-05-11] MEDS: PALIPERIDONE 6 MG TAB.ER.24 PO SCH (19:51)
[2023-05-11] MEDS: DIVALPROEX ER 500 MG TAB.ER.24H PO SCH (19:51)
[2023-05-12] MEDS: NICOTINE 14MG/24HR PATCH TRANSDERM SCH (08:22)
--- NOTE | 2023-05-12 12:16 | P.PN ---
Subjective Progress Note Date: 05/12/23 Principal diagnosis: Assessment Major depressive disorder, recurrent, severe, with psychotic features Cannabis use disorder Nicotine dependence Patient Name: Mary Roberto Date of : 89 Patient Status: Inpatient Attending Provider: Jelani Starr Date: 05/12/23 Follow-up by Dr. Selwyn Estrada M.D. Patient was seen reading in his room and was directable and agreeable to speak with telegraphic typewriter repairer in his room. The patient is reporting that he is feeling significant better. Patient also wanted know if I could give him some medication that would improve his memory Patient admits that he was using cannabis every day before he came in He reports that he has been slowly gaining the ability to slow down and ground himself back to reality. He reports no issues regarding his sleep or his appetite. He denies any medical issues or concerns. Mental Status Exam: General Appearance: Patient appears to be stated age is alert, directable, and cooperative. Behavior: Patient is calmly seated without any agitated behavior. Speech: Patient's speech is fluent and nonpressured. Mood/Affect: Mood is improving mildly, affect is congruent and blunted. Suicidality/Homicidality: Patient denies having any suicidal or homicidal ideation, intention, and/or plan. Perceptions: Patient denies any visual hallucinations and denies any auditory hallucinations Though content/process: Patient does acknowledge delusional thoughts and rumination. Memory and concentration: AOX3, grossly intact for the purposes of this session Judgment and insight: Improving mildly Assessment Major depressive disorder, recurrent, severe, with psychotic features Cannabis use disorder Nicotine dependence Plan: -Patient continues to meet criteria for inpatient psychiatric admission for symptom stabilization and safety. Patient has signed adult voluntary form and medication consent and was placed in patient's chart. Patient signed AMA form for discharge - discharge due 05/15/2023. -Medications: Depakote 500 mg by mouth at bedtime for mood stabilization invega to 6 mg by mouth at bedtime for psychosis and mood -24 hour urine metanephrines ordered to rule out pheochromocytoma. Concern due to elevated BP, HR, and reports of sweats, and panic. -When necessary Zyprexa and vistaril for agitation/aggression. -NRT - nicotine patch -SW on board for discharge planning. Encouraged the patient to participate in milieu. Selwyn Estrada M.D. 05/12/2023 Objective - Vital Signs Vital signs: Vital Signs Temp 97.6 F 05/12/23 07:07 Pulse 89 05/12/23 07:07 Resp 19 05/12/23 07:07 BP 126/66 05/12/23 07:07 Pulse Ox 98 05/12/23 07:07 FiO2 - Labs CBC & Chem 7: 05/11/23 08:01 05/11/23 08:01
[2023-05-12] MEDS: PALIPERIDONE 6 MG TAB.ER.24 PO SCH (20:34)
[2023-05-12] MEDS: DIVALPROEX ER 500 MG TAB.ER.24H PO SCH (20:34)
[2023-05-12] MEDS: traZODone HCL 50 MG TAB PO PRN (20:46)
--- NOTE | 2023-05-13 10:02 | P.PN ---
Subjective Progress Note Date: 05/13/23 Principal diagnosis: Assessment Major depressive disorder, recurrent, severe, with psychotic features Cannabis use disorder Nicotine dependence Patient Name: Mary Roberto Date of : [birth year] Patient Status: Inpatient Attending Provider: Jelani Starr Date: 05/13/23 Follow-up by Dr. Selwyn Estrada M.D. The patient was seen in his room where he was sitting on the side of the bed reading a book on Hinduism Patient remains superficial and withdrawn Patient responded appropriately to questions asked He states that he slept better He denies any suicidal or homicidal He admits that his memory has started to improve and understands that it was related to the cannabis use Nursing also has reported that the patient has made some suicidal comments about wanting to but no suicidal plans Mental Status Exam: General Appearance: Patient appears to be stated age is alert, directable, and cooperative. Behavior: Patient is calmly seated without any agitated behavior. Speech: Patient's speech is fluent and nonpressured. Mood/Affect: Mood is improving mildly, affect is congruent and blunted. Suicidality/Homicidality: Patient denies having any suicidal or homicidal ideation, intention, and/or plan. Perceptions: Patient denies any visual hallucinations and denies any auditory hallucinations Though content/process: Patient does acknowledge delusional thoughts and rumination. Memory and concentration: AOX3, grossly intact for the purposes of this session Judgment and insight: Improving mildly Assessment Major depressive disorder, recurrent, severe, with psychotic features Cannabis use disorder Nicotine dependence Plan: -Patient continues to meet criteria for inpatient psychiatric admission for symptom stabilization and safety. Patient has signed adult voluntary form and medication consent and was placed in patient's chart. Patient signed AMA form for discharge - discharge due 05/15/2023. -Medications: Depakote 500 mg by mouth at bedtime for mood stabilization invega to 6 mg by mouth at bedtime for psychosis and mood -24 hour urine metanephrines ordered to rule out pheochromocytoma. Concern due to elevated BP, HR, and reports of sweats, and panic. -When necessary Zyprexa and vistaril for agitation/aggression. -NRT - nicotine patch -SW on board for discharge planning. Encouraged the patient to participate in milieu. Continue suicidal precautions and close observation Selwyn Estrada M.D. 05/13/2023 Objective - Vital Signs Vital signs: Vital Signs Temp 98.2 F 05/13/23 06:43 Pulse 113 H 05/13/23 06:43 Resp 14 05/13/23 06:43 BP 122/90 05/13/23 06:43 Pulse Ox 98 05/12/23 07:07 FiO2 - Labs CBC & Chem 7: 05/11/23 08:01 05/11/23 08:01
[2023-05-13] MEDS: NICOTINE 14MG/24HR PATCH TRANSDERM SCH ×2 (11:52→19:12)
[2023-05-13] MEDS: PALIPERIDONE 6 MG TAB.ER.24 PO SCH (20:17)
[2023-05-13] MEDS: DIVALPROEX ER 500 MG TAB.ER.24H PO SCH (20:17)
[2023-05-13] MEDS: traZODone HCL 50 MG TAB PO PRN (23:23)
[2023-05-14] MEDS: NICOTINE 14MG/24HR PATCH TRANSDERM SCH ×2 (10:12→15:20)
--- NOTE | 2023-05-14 11:49 | P.PN ---
Progress Note - Text Progress Note Date: 05/14/23 Interval History: Patient was seen resting in bed and was directable and agreeable to speak with account underwriter in his room. Morning, the patient is reporting that he is experiencing "bad thoughts." He reports these bad thoughts are causing him to see things that are terrible. He refuses to go into detail. He also reports auditory hallucinations that contribute to these "bad thoughts." He has been adherent with his medication and is not otherwise not reporting any significant side effects. He is not reporting any suicidal or homicidal ideation, intention, and/or plan. He reports no issues regarding his sleep or his appetite. He continues to report excessive guilt and feels as if he is doing something wrong. He continues to be interested in discharge. Mental Status Exam: General Appearance: Patient appears to be stated age is alert, directable, and cooperative. Behavior: Patient is calmly lying down in bed without any agitated behavior. Eye contact is appropriate. Speech: Patient's speech is fluent and nonpressured. Mood/Affect: Mood is "not good," affect is blunted. Suicidality/Homicidality: Patient denies having any suicidal or homicidal ideation intent or plan. Perceptions: Patient endorses both auditory and visual hallucinations. Though content/process: The patient appears to be dysphoric. Memory and concentration: AOX3, grossly intact for the purposes of this session Judgment and insight: Fair Vital Signs Temp 97.6 F 05/14/23 06:47 Pulse 95 05/14/23 06:47 Resp 14 05/14/23 06:47 BP 138/82 05/14/23 06:47 Pulse Ox 98 05/12/23 07:07 FiO2 Assessment Major depressive disorder, recurrent, severe, with psychotic features Cannabis use disorder Nicotine dependence Plan: -Patient continues to meet criteria for inpatient psychiatric admission for symptom stabilization and safety. Patient has signed adult voluntary form and medication consent and was placed in patient's chart. Patient signed an AMA form and is due for discharge tomorrow. Should the patient be unstable, we will pursue petition and certification. We will request patient rescind AMA at this time due to concerns for severity of his symptoms. -Medications: Increase Invega to 9 mg by mouth at bedtime for psychosis and mood Discontinue Depakote and start Prozac for depression. -When necessary Zyprexa and Vistaril for agitation/aggression. -NRT - nicotine patch -SW on board for discharge planning. Encouraged the patient to participate in milieu.
[2023-05-14] MEDS ORDERED: FLUoxetine HCL 10 MG CAP PO STA (14:38)
[2023-05-14] MEDS ORDERED: PALIPERIDONE 3 MG TAB.ER.24 PO SCH (21:00)
[2023-05-15 06:50] VITALS: BP 117/67; PULSE 66; RESP 18; TEMP 97.5
[2023-05-15] MEDS: NICOTINE 14MG/24HR PATCH TRANSDERM SCH (08:00)
[2023-05-15] MEDS ORDERED: FLUoxetine HCL 10 MG CAP PO SCH (09:00)
[2023-05-15] MEDS ORDERED: FLUoxetine HCL 20 MG CAP PO SCH (09:00)
--- NOTE | 2023-05-15 09:47 | P.DS ---
Providers Date of admission: 05/10/23 10:28 Expected date of discharge: 05/15/23 Attending physician: Jelani Starr MD Consults: 05/10/23 10:49 Consult Physician Routine Consulting Provider: Priti Liang Consult Reason/Comments: H and P Do you want consulting provider notified?: Yes Primary care physician: Patrice Han MD - Discharge Diagnosis(es) (1) Major depressive disorder with psychotic features Current Visit: Yes Status: Acute Priority: High (2) OCD (obsessive compulsive disorder) Current Visit: Yes Status: Acute Priority: High (3) Cannabis use disorder Current Visit: Yes Status: Chronic Priority: Medium (4) Tobacco use disorder Current Visit: Yes Status: Chronic Priority: Low Hospital Course: Admission HPI: Patient is a single, unemployed, 27-year-old male with significant history of major depression with psychotic features who presented to our hospital on 05/10/2023 for worsening depression and psychotic symptoms Patient presented to the hospital on 05/10/2023, brought into the hospital at the recommendation of his family for psychiatric evaluation. The patient has been "struggling with scary unpleasant thoughts." He was noted to be very paranoid and concerned about the electronics in his home. He quit his job recently. His family has been expressing concern as the patient has been off medications for a few months. Furthermore, the patient has been using marijuana daily in order to help him with sleep. The patient was agreeable to voluntary admission on to the psychiatric unit. Upon evaluation on the psychiatric unit, the patient reports that he has not been doing well for the past few weeks. He reports that he has been struggling with excessive guilt feeling like he has let down multiple individuals. He does admit to suicidal thoughts. He does report that he is experiencing auditory hallucinations that are telling him to hurt himself. Furthermore, the patient does report anabaptist preoccupation, ideas of reference, and loose associations. He states that he stopped taking his medications a few months ago. He reports that he has not been sleeping well. He does report significant symptoms of depression including low motivation, excessive guilt, anhedonia, decreased appetite, and suicidal thoughts. Although he does report excessive energy, he is not reporting any other symptoms of bipolar disorder. The patient is agreeable to the reinitiation of his medications. He does report that the medications are helping when he was taking them. He is unable to provide a clear reason as to why he stopped the medications but he has been noted that he stopped them because it was interfering with his ability to work. PAST PSYCHIATRIC HISTORY: Patient has a diagnosis of schizoaffective disorder and cannabis use disorder. He was last discharged on a regimen of Invega Sustenna and Depakote. He was last hospitalized on our psychiatric unit in January and February 2022. He was previously open with [facility] but is currently not open with any outpatient psychiatric provider. He does not report any prior attempts at suicide. Hospital course: Upon admission to the unit patient was initially presenting as depressed, disheveled, and experiencing ego-dystonic thoughts and hallucinations. Patient was however directable and agreeable to commence treatment. He signed voluntarily on to the psychiatric unit. However, the patient did sign an AMA form for discharge as he expressed desire to get his life back together as soon as possible. Patient got along well with other patients on the unit and foll owed unit protocol. Patient was compliant with the medications and denied any side effects throughout hospital course. Patient was started on Depakote and Invega for management of schizoaffective disorder. However, as a hospitalization progressed, the patient continued to experience "bad thoughts." He continued to display significant signs and symptoms of depression and responds to internal stimuli. The patient eventually discussed with this provider that he was experiencing intrusive, gruesome, sexual thoughts consistent with a diagnosis of OCD. The Depakote was discontinued as the luisa ent did not benefit from this medication and he was started on Prozac. On this regimen of Prozac and Invega, the patient displayed significant improvement in regards to his target symptoms of anxiety, depression, and response to internal stimuli. He is future and goal oriented and had good insight and judgment. On the day of discharge, the patient is not reporting any suicidal or homicidal ideation, intention, and/or plan. He is not reporting any auditory or visual hallucinations. He continues to report that he experiences these intrusive thoughts of gruesome sexual images however they are less frequent and less intense. The patient fully confirms that these thoughts are ego dystonic and he would never act on any of these. The patient's current compulsion is to read multiple passages either in the Bible or in the dictionary in order to deal with sad thoughts. He does however report that the Prozac has been helping significantly decreased its intensity. He remains future and goal oriented. He is alert and oriented in all spheres and is grounded in reality at this time. This provider discussed with the patient the option to stay for another night on the psychiatric unit to observe for further improvement and safety however the patient is not in agreement at this time would like to exercise his right to sign out AMA. He denies any access to firearms or other weapons. He reports future and goal orientation with the plan to return to work eventually. He expresses gratitude for this admission. The patient was counseled at length on abstaining from all substances including alcohol, tobacco, and marijuana. He was advised to abstain from any illicit substance. He was counseled at length and the importance of medication adherence and appropriate outpatient follow-up. He reported no medical issues or concerns and reported no chest pain, shortness of breath, palpitations, akathisia, or tardive dyskinesia. As the patient did not present with imminent risk of harm to self or others, and has his right to autonomy, he was subsequently discharged after signing out AGAINST MEDICAL ADVICE. Mental status exam: General Appearance: Patient appears to be stated age is alert, pleasant, and cooperative. Patient is in no acute distress and has fair hygiene and grooming Behavior: Patient is calmly seated without any agitated behavior. Speech: Patient's speech is fluent and nonpressured. Mood/Affect: Patient reports their mood is "doing better", affect is congruent and constricted however more range today than throughout the hospitalization. Suicidality/Homicidality: Patient vehemently denies any suicidal or homicidal ideation, intention, and/or plan. Perceptions: Patient denies any auditory or visual hallucinations. Though content/process: The patient continues to report occasional intrusive thoughts however reports that they're less severe and less frequent than before. He is otherwise linear and logical in conversation. Future and goal oriented. Memory and concentration: AOX3, grossly intact for the purposes of this session. Can spell "WORLD" backwards correctly. Judgment and insight: Improved with guarded prognosis Impression: Major depressive disorder, recurrent, severe, with psychotic features Obsessive-compulsive disorder Cannabis use disorder Nicotine dependence Plan: -Continue with discharge today as patient has improved and stabilized psychiatrically and is not currently an imminent threat to himself and/or others. Patient will remain at elevated risk due to his history of severe mental illness and cannabis abuse. This provider discussed with the patient the option to extend his current hospitalization however he wishes to sign out AGAINST MEDICAL ADVICE. As the patient does not present with imminent risk to himself or others, he is subsequently discharged. -Continue medications: Prozac 40 mg by mouth daily for OCD Invega 9 mg by mouth at bedtime for psychosis/mood -Patient was counseled on the need for medication compliance and appropriate follow-up at mental health and also primary care for medical issues. Patient verbalized understanding and agreed. -Social work to arrange for and conduct family meeting to ensure safety upon discharge and answer any questions/concerns. Social work also to arrange for patients follow up appointments with [facility] for psychiatric care along with follow up with primary care provider. -Patient counseled on abstaining from recreational drugs and marijuana and alcohol. Was informed/educated on the adverse effects on their physical and mental health. Patient verbally agreed and understood. -Patient was instructed to return to the hospital or seek immediate medical care if their psychiatric or medical symptoms do worsen or reoccur. -Psychoeducation and supportive therapy provided to patient. Risks and benefits of pharmacological treatment versus the risks and benefits of nontreatment weighed and discussed. Informed consent discussion held. Common side effects of psychotropics discussed such as, but not limited to headache, GI disturbance, sexual dysfunction, movement disorders, sedation, and orthostatic hypotension. Life threatening and blackbox warnings of prescribed medications also discussed. Potential risks of operating a vehicle or heavy machinery discussed with patient at length. Advised on importance of compliance and a reliable and responsible manner. Patient advised to review FDA consumer labeling of all medications prior to taking. Patient verbalized understanding of potential risks, and agrees with current treatment plan. Patient advised to medically contact physician/emergency personnel if any acute changes in condition occur. Vital Signs Temp 97.5 F L 05/15/23 06:00 Pulse 66 05/15/23 06:00 Resp 18 05/15/23 06:00 BP 117/67 05/15/23 06:00 Pulse Ox 97 05/15/23 06:00 FiO2 Laboratory Results WBC 8.6 k/uL (3.8-10.6) 05/11/23 08:01 RBC 5.81 m/uL (4.30-5.90) 05/11/23 08:01 Hgb 17.2 gm/dL (13.0-17.5) 05/11/23 08:01 Hct 50.0 % (39.0-53.0) 05/11/23 08:01 MCV 86.2 fL (80.0-100.0) 05/11/23 08:01 MCH 29.6 pg (25.0-35.0) 05/11/23 08:01 MCHC 34.4 g/dL (31.0-37.0) 05/11/23 08:01 RDW 12.2 % (11.5-15.5) 05/11/23 08:01 Plt Count 235 k/uL (150-450) 05/11/23 08:01 MPV 8.0 05/11/23 08:01 Neutrophils % 61 % 05/11/23 08:01 Lymphocytes % 29 % 05/11/23 08:01 Monocytes % 6 % 05/11/23 08:01 Eosinophils % 3 % 05/11/23 08:01 Basophils % 0 % 05/11/23 08:01 Neutrophils # 5.2 k/uL (1.3-7.7) 05/11/23 08:01 Lymphocytes # 2.5 k/uL (1.0-4.8) 05/11/23 08:01 Monocytes # 0.5 k/uL (0-1.0) 05/11/23 08:01 Eosinophils # 0.2 k/uL (0-0.7) 05/11/23 08:01 Basophils # 0.0 k/uL (0-0.2) 05/11/23 08:01 Sodium 139 mmol/L (137-145) 05/11/23 08:01 Potassium 4.3 mmol/L (3.5-5.1) 05/11/23 08:01 Chloride 105 mmol/L (98-107) 05/11/23 08:01 Carbon Dioxide 24 mmol/L (22-30) 05/11/23 08:01 Anion Gap 10 mmol/L 05/11/23 08:01 BUN 16 mg/dL (9-20) 05/11/23 08:01 Creatinine 0.98 mg/dL (0.66-1.25) 05/11/23 08:01 Est GFR (CKD-EPI)AfAm >90 (>60 ml/min/1.73 sqM) 05/11/23 08:01 Est GFR (CKD-EPI)NonAf >90 (>60 ml/min/1.73 sqM) 05/11/23 08:01 Glucose 92 mg/dL (74-99) 05/11/23 08:01 Calcium 9.8 mg/dL (8.4-10.2) 05/11/23 08:01 Total Bilirubin 1.1 mg/dL (0.2-1.3) 05/11/23 08:01 AST 30 U/L (17-59) 05/11/23 08:01 ALT 33 U/L (4-49) 05/11/23 08:01 Alkaline Phosphatase 75 U/L (38-126) 05/11/23 08:01 Total Protein 7.9 g/dL (6.3-8.2) 05/11/23 08:01 Albumin 5.0 g/dL (3.5-5.0) 05/11/23 08:01 TSH 1.170 mIU/L (0.465-4.680) 05/11/23 08:01 Urine Opiates Screen Not Detected (NotDetected) 05/10/23 00:35 Ur Oxycodone Screen Not Detected (NotDetected) 05/10/23 00:35 Urine Methadone Screen Not Detected (NotDetected) 05/10/23 00:35 Ur Propoxyphene Screen Not Detected (NotDetected) 05/10/23 00:35 Ur Barbiturates Screen Not Detected (NotDetected) 05/10/23 00:35 U Tricyclic Antidepress Not Detected (NotDetected) 05/10/23 00:35 Ur Phencyclidine Scrn Not Detected (NotDetected) 05/10/23 00:35 Ur Amphetamines Screen Not Detected (NotDetected) 05/10/23 00:35 U Methamphetamines Scrn Not Detected (NotDetected) 05/10/23 00:35 U Benzodiazepines Scrn Not Detected (NotDetected) 05/10/23 00:35 Urine Cocaine Screen Not Detected (NotDetected) 05/10/23 00:35 U Marijuana (THC) Screen Detected (NotDetected) H 05/10/23 00:35 Coronavirus (PCR) Not Detected (Not Detectd) 05/10/23 00:04 Allergies Allergy/AdvReac Type Severity Reaction Status Date / Time No Known Allergies Allergy Verified 05/10/23 11:04 Patient Condition at Discharge: Stable Plan - Discharge Summary Discharge Rx Participant: No New Discharge Prescriptions: New Paliperidone [Invega] 9 mg PO HS 30 Days #90 tab FLUoxetine HCL [PROzac] 40 mg PO DAILY 30 Days #60 cap Continue Albuterol Inhaler [Ventolin Hfa Inhaler] 2 puff INHALATION Q6H PRN PRN Reason: Shortness Of Breath Discharge Medication List Albuterol Inhaler [Ventolin Hfa Inhaler] 2 puff INHALATION Q6H PRN 05/11/23 [History] FLUoxetine HCL [PROzac] 40 mg PO DAILY 30 Days #60 cap 05/15/23 [Rx] Paliperidone [Invega] 9 mg PO HS 30 Days #90 tab 05/15/23 [Rx] Follow up Appointment(s)/Referral(s): Patrice Han MD [Primary Care Provider] - 1-2 days Patient Instructions/Handouts: How to Stop Smoking (DC), Depression (DC) Activity/Diet/Wound Care/Special Instructions: Avoid the use of street drugs and alcohol. Take all medications as prescribed. When you are in need of refills on your medications, please contact your medical provider and/or outpatient psychiatrist/provider to have this done. Please go to your scheduled outpatient appointment for aftercare treatment. If symptoms return or become worse, call the crisis line at and/or go to the nearest emergency room for evaluation. National Suicide Hotline 988. Discharge Disposition: HOME SELF-CARE
[2023-05-17 22:44] LABS: Metanephrine, Free <25 pg/mL (< OR = 57); Normetanephrine, Free 65 pg/mL (< OR = 148); Total, Free (MN + NMN) 65 pg/mL (< OR = 205)
== END 2023-05-15 13:06 | disposition home or self-care (01) | DRG 885 ==
LOC: EC 20:45 → 3MHU 05-10 10:28
PROVIDERS: ADMIT Psychiatry & Neurology Psychiatry; ATTEND Psychiatry & Neurology Psychiatry
DX: F33.3 Major depressive disorder, recurrent, severe with psychotic symptoms (principal); R45.851 Suicidal ideations; Z53.29 Procedure and treatment not carried out because of patient's decision for other reasons; Z20.822 Contact with and (suspected) exposure to COVID-19; F17.290 Nicotine dependence, other tobacco product, uncomplicated; F41.9 Anxiety disorder, unspecified; F42.9 Obsessive-compulsive disorder, unspecified; F17.210 Nicotine dependence, cigarettes, uncomplicated; F90.9 Attention-deficit hyperactivity disorder, unspecified type; J45.909 Unspecified asthma, uncomplicated; Z79.899 Other long term (current) drug therapy; Z85.07 Personal history of malignant neoplasm of pancreas; F12.90 Cannabis use, unspecified, uncomplicated
CPT/HCPCS: 80053; 80306; 82075; 83835; 84443; 85025; 87635; 93005; 99285